=== PATIENT | female | born 1930 | race Caucasian/White ===

== ENCOUNTER 2019-03-16 18:48 | Observation (INO) | payer MEDICARE, BC ==
[2019-03-16] MEDS ORDERED: ACETAMINOPHEN TAB 500 MG TAB PO STA (19:14)
[2019-03-16] MEDS ORDERED: DIPH,PERTUS(ACELL)TETVAC-LF 0.5 ML VIAL IM ONE (19:16)
--- NOTE | 2019-03-16 20:48 | CT ---
EXAMINATION TYPE: CT brain deborahine wo con DATE OF EXAM: 03/16/2019 COMPARISON: 01/24/2016 HISTORY: fall. Pain/multiple facial lacerations. CT DLP: combined DLP 961.5 mGycm Automated exposure control for dose reduction was used. TECHNIQUE: CT scan of the head and cervical spine are performed without contrast. FINDINGS: There is no acute intracranial hemorrhage, mass effect, or midline shift identified. The ventricles and sulci are within normal limits in size. The globes are intact and the visualized sin uses are clear. Cervical spine is visualized in its entirety from C1 through upper thoracic levels and demonstrates s atisfactory alignment without evidence of acute fracture or dislocation. Prevertebral soft tissue ap pears within normal limits. Severe multilevel spondylosis changes are appreciated. The C1-C2 articula tion is unremarkable. IMPRESSION: 1. There is no acute fracture or dislocation evident in the cervical spine. 2. No acute intracranial hemorrhage, mass effect, or midline shift is seen.
--- NOTE | 2019-03-16 20:53 | CT ---
EXAMINATION TYPE: CT facial bones wo con DATE OF EXAM: 03/16/2019 COMPARISON: 01/24/2016 HISTORY: fall. Multiple facial lacerations. CT DLP: combined DLP 961.5 mGycm Automated exposure control for dose reduction was used. TECHNIQUE: CT scan of the sinuses is performed without contrast, axial images are obtained, coronal r eformatted images are also reviewed. FINDINGS: Comminuted and depressed right nasal bone fracture. Comminuted left nasal bone fracture. The anterior nasal septum shows apex-rightward fracture. The bilateral zygoma and orbits and maxillary, ethmoid, frontal, and sphenoid sinuses are intact. The remainder of the facial skeleton is intact, and the TMJs are congruent. There is no visualized skull fracture. Mastoid sinus air cells and middle ear cavities are clear. IMPRESSION: Bilateral nasal bone and nasal septum fractures
--- NOTE | 2019-03-16 21:07 | XR ---
PROCEDURE: XR knee complete RT - 3V DATE AND TIME: 03/16/2019 7:34 PM CLINICAL INDICATION: PHH; Pain TECHNIQUE: Department protocol COMPARISON: None FINDINGS: There is no fracture or malalignment. Advanced medial compartment osteoarthritis changes are appreciated. The soft tissues are negative for acute findings. Advanced atherosclerotic nonaneurysmal calcificatio ns are noted. IMPRESSION: NO ACUTE PROCESS.
[2019-03-16] MEDS ORDERED: LIDOCAINE 1% INJ 10MG/ML (20 ML MDV) SQ ONE (21:19)
[2019-03-16] MEDS ORDERED: TOPICAL SKIN ADHESIVE 1 EACH AMP TOPICAL ONE (21:53)
[2019-03-16] MEDS ORDERED: NALOXONE 0.4 MG/ML 1 ML VIAL IV PRN (23:26)
[2019-03-16] MEDS ORDERED: ONDANSETRON 4 MG/2 ML VIAL IVP PRN (23:26)
--- NOTE | 2019-03-16 23:26 | ED ---
Fall HPI - General Chief Complaint: Fall Stated Complaint: fall Time Seen by Provider: 03/16/19 18:49 Source: patient, EMS Mode of arrival: EMS - History of Present Illness Initial Comments: 88-year-old female patient presents to the emergency department by ambulance today for evaluation after experiencing a fall at home. Patient states that she was walking outside with her cane when she tripped and fell forward landing on her face. Patient denies any loss of consciousness with this injury. She did sustain several lacerations to the face and has an obviously deformed nose. C- collar is in place. Patient is currently reporting headache. She denies any blurred or double vision. Denies any nausea or vomiting. Patient is also reporting right knee pain. States that she was unable to ambulate after the fall. Patient denies any neck pain, back pain, chest pain, shortness of breath, dizziness, weakness, abdominal pain, or difficulties with bowel movements or urination. - Related Data Home Medications Medication Instructions Recorded Confirmed Latanoprost Ophth [Xalatan 0.005%] 1 drops BOTH EYES 08/24/14 03/16/19 Meclizine [Antivert] 12.5 mg PO DAILY@1700 08/24/14 03/16/19 Allopurinol [Zyloprim] 150 mg PO DAILY@1200 01/24/16 03/16/19 Methotrexate Sodium [Methotrexate] 17.5 mg PO WE 01/24/16 03/16/19 Acetaminophen [Tylenol Arthritis 650 mg PO HS 03/13/16 03/16/19 8-hr] Brimonidine Tartrate [Alphagan P 1 drops BOTH EYES HS 03/13/16 03/16/19 0.1% Ophth Soln] Folic Acid 1 mg PO DAILY@1200 03/13/16 03/16/19 Potassium Chloride ER [K-Dur 20] 20 meq PO DAILY 03/13/16 03/16/19 Donepezil [Aricept] 10 mg PO DAILY 03/16/19 03/16/19 Ferrex-28 0.5 tab PO DAILY@119903/16/19 03/16/19 Furosemide [Lasix] 20 mg PO DAILY@119903/16/19 03/16/19 Ipratropium [place] 0.06%Nasal 1 spray EA NOSTRIL 03/16/19 03/16/19 [Atrovent Nasal 0.06%] Levothyroxine Sodium [Synthroid] 88 mcg PO DAILY 03/16/19 03/16/19 Memantine [Namenda] 10 mg PO BID 03/16/19 03/16/19 Omeprazole [PriLOSEC] 20 mg PO DAILY 03/16/19 03/16/19 Propylene Glycol/Peg 400/Pf 1 dropper BOTH EYES DAILY@1400 03/16/19 03/16/19 [Systane 0.3-0.4% Eye Drops] Sertraline [Zoloft] 50 mg PO HS 03/16/19 03/16/19 Allergies Allergy/AdvReac Type Severity Reaction Status Date / Time ciprofloxacin HCl Allergy Intermediate Rash/Hives Verified 03/16/19 20:16 [From Cipro] Penicillins Allergy Rash/Hives Verified 03/16/19 20:16 Sulfa (Sulfonamide Allergy Rash/Hives Verified 03/16/19 20:16 Antibiotics) Review of Systems ROS Statement: Those systems with pertinent positive or pertinent negative responses have been documented in the HPI. ROS Other: All systems not noted in ROS Statement are negative. Past Medical History Past Medical History: Cancer, Hyperlipidemia, Hypertension, Memory Impairment, Osteoarthritis (OA), Pneumonia, Pulmonary Embolus (PE), Thyroid Disorder Additional Past Medical History / Comment(s): PAST GOUT, GLAUCOMA, BLOOD CLOTS 2011, UTI, LEAKAGE OF URINE WEARS A PAD, DIVERTICULAR DISEASE, SKIN CANER 1999 History of Any Multi-Drug Resistant Organisms: None Reported Past Surgical History: Appendectomy, Bladder Surgery, Hysterectomy, Joint Replacement Additional Past Surgical History / Comment(s): colostomy for perforated bowel,MARILEE carpal tunnel surgery and 8 trigger finger surgerIES, CATARACT SURGERY BOTH EYES-LENS IMPLANTS, LT KNEE REPLACEMENT,HEMORRHOIDECTOMY Past Anesthesia/Blood Transfusion Reactions: Postoperative Nausea & Vomiting (PONV) Past Psychological History: Anxiety, Depression Smoking Status: Never smoker Past Alcohol Use History: None Reported Past Drug Use History: None Reported - Past Family History Brother(s) Family Medical History: Cancer Additional Family Medical History / Comment(s): BRAIN CANCER Daughter(s) Family Medical History: Cancer Additional Family Medical History / Comment(s): SKIN CANCER Mother Family Medical History: Congestive Heart Failure (CHF) Father Family Medical History: Musculoskeletal Disorder General Exam Limitations: no limitations General appearance: alert, in no apparent distress, other (This is a well- developed, well-nourished elderly female patient in no acute distress. Vital signs upon presentation are temperature 97.7F, pulse 81, respirations 16, blood pressure 181/83, pulse ox 99% on room air.) Head exam: Present: atraumatic, normocephalic, normal inspection Eye exam: Present: PERRL, EOMI, other (Patient has right inner canthus laceration, 0.5 cm, does not appear to involve the tear duct.). Absent: normal appearance, scleral icterus, conjunctival injection, periorbital swelling ENT exam: Present: normal exam, normal oropharynx, mucous membranes moist, TM's normal bilaterally Neck exam: Present: normal inspection. Absent: tenderness, meningismus, full ROM (C-collar in place), lymphadenopathy Respiratory exam: Present: normal lung sounds bilaterally. Absent: respiratory distress, wheezes, rales, rhonchi, stridor Cardiovascular Exam: Present: regular rate, normal rhythm, normal heart sounds. Absent: systolic murmur, diastolic murmur, rubs, gallop, clicks GI/Abdominal exam: Present: soft, normal bowel sounds. Absent: distended, tenderness, guarding, rebound, rigid Extremities exam: Present: full ROM, normal capillary refill, other (There is small skin tear noted to the right elbow. There is no bony tenderness. Patient has full range of motion. There is small abrasion noted to the left thumb. No bony tenderness. Full range of motion to the hand. Patient has ecchymosis to the right anterior knee. Small abrasion noted. Patient does have some mild [place] tenderness. Does exhibit full range of motion. Skin to the extremities are pink, warm, and dry. Cap refills less than 3 seconds. Radial pulses 2+ and equal bilaterally. Pedal pulses 2+ and equal bilaterally.). Absent: normal inspection, tenderness, pedal edema, joint swelling, calf tenderness Back exam: Present: normal inspection, other (Nontender, no step-off, no deformity to firm midline palpation of the thoracic and lumbar vertebrae. Full range of motion without pain or limitation.). Absent: vertebral tenderness Neurological exam: Present: alert, CN II-XII intact. Absent: oriented X3 (Oriented 2) Psychiatric exam: Present: normal affect, normal mood Skin exam: Present: warm, dry, intact, normal color. Absent: rash Expanded 1 - 3 cm laceration noted to the right eyebrow 2 - 1 cm laceration noted to the nasal bridge. 1 cm stellate laceration noted to the right nasal surface Course Vital Signs 03/16/19 03/16/19 18:49 19:00 Temperature 97.7 F Pulse Rate 81 80 Respiratory 16 Rate Blood Pressure 181/83 174/85 O2 Sat by Pulse 99 97 Oximetry Procedures - Laceration Laceration #1 Consent Obtained: verbal consent Indication: laceration Site: face (Right eyebrow) Size (cm): 3 Description: linear Depth: simple, single layer Anesthetic Used: lidocaine 1% Anesthesia Technique: local infiltration Amount (mls): 4 Pre-repair: irrigated extensively Type of Sutures: nylon Size of Sutures: 6-0 Number of Sutures: 6 Technique: simple, interrupted Patient Tolerated Procedure: well, no complications Laceration #2 Consent Obtained: verbal consent Indication: laceration Site: face (Nasal bridge) Size (cm): 1 Description: linear Depth: simple, single layer Anesthetic Used: lidocaine 1% Anesthesia Technique: local infiltration Amount (mls): 1 Pre-repair: irrigated extensively Type of Sutures: vicryl Size of Sutures: 6-0 Number of Sutures: 1 Technique: simple, interrupted Patient Tolerated Procedure: well, no complications Laceration #3 Consent Obtained: verbal consent Indication: laceration Site: face (Right nasal surface) Size (cm): 1 Description: stellate Depth: simple, single layer Anesthetic Used: lidocaine 1% Anesthesia Technique: local infiltration Amount (mls): 1 Pre-repair: irrigated extensively Type of Sutures: other (Exofin skin adhesive) Patient Tolerated Procedure: well, no complications Medical Decision Making - Medical Decision Making 88-year-old female patient presents to the emergency department today for evaluation after expressing a fall. Physical examination did reveal deformity of the nasal bone and surrounding swelling. Patient also had laceration noted above the right eyebrow, over the nasal bridge and to the right nasal surface. She also exhibited skin tear to the right elbow, abrasion to the left hand, and ecchymosis to the right knee. Patient is neurologically intact with no focal deficits. She did undergo computed tomography scan of the head, neck, and facial bones, this showed evidence for a comminuted nasal bone fracture and nasal septal fracture. There is no evidence for any other intracranial or facial injuries. X-ray of the right knee was obtained and showed no acute fractures or dislocations. Lacerations were repaired as documented. I did discuss the case with . his agrees to admit patient for observation. We will consult ears, nose, throat specialty for further evaluation of the nasal bone fracture. - Radiology Data Radiology results: report reviewed, image reviewed CT of the facial bones without contrast was obtained. Report is reviewed in its entirety. Impression by Dr. Priyanka Walker shows bilateral nasal bone and nasal septum fractures. Computed tomography scan of the head and C-spine are performed without contrast. Report was reviewed in its entirety. Impression by Dr. Priyanka Walker shows no acute fracture dislocation evident in the cervical spine. No acute intracranial hemorrhage, mass effect, or midline shift is seen. \ X-ray of the right knee is obtained. Report was reviewed in its entirety. Impression by Dr. Priyanka Walker shows no acute process. Disposition Clinical Impression: Fall, Nasal bone fracture Disposition: ADMITTED IP TO THIS [facility] Condition: Serious Referrals: Josselyn Cheney MD [Primary Care Provider] - 1-2 days Decision to Admit Reason: Admit from EC Decision Date: 03/16/19 Decision Time: 23:26
[2019-03-17] MEDS: MORPHINE SULFATE 2 MG/ML SYRINGE IVP PRN ×4 (01:06→15:33)
--- NOTE | 2019-03-17 02:08 | CONS ---
CONSULTATION CHIEF COMPLAINT: This is an 88-year-old female who fell while walking on a cement curb. She injured her right side of her face. MEDICAL HISTORY: Reviewed. PAST SURGICAL HISTORY: Reviewed with the patient. MEDICATIONS: Medication reviewed with the patient. PHYSICAL EXAMINATION: Eye examination: Vision is 20/40, both eyes. Extraocular motility full. Cornea clear. Conjunctivae clear. There is a lid laceration measuring 0.5 mm in depth and 2- 1/2 inches above the right eyebrow. There is also a superficial laceration in above the medial canthus, not involving the lacrimal sac. The lenses are clear. In both eyes, intra-ocular pressure around 18 mmHg, both eyes. Retina deferred. ASSESSMENT: 1. Right eyebrow skin laceration. 2. Right medial canthus laceration does not look to involve the lacrimal sac. Possible bone fracture of the nose. PLAN: I spoke with the emergency room doctor who is going ahead to suture the skin lacerations. I will examine her, on Friday at 4:00 pm in the office. The number is [phone] to perform probing and irrigation of the right lacrimal duct to be sure no stenosis or injury. Thank you for this consultation. MMODL / IJN: [id number] /
[2019-03-17] MEDS: LEVOTHYROXINE 88 MCG TAB PO SCH (05:30)
[2019-03-17] MEDS ORDERED: METHOTREXATE SODIUM 2.5 MG TAB PO SCH (09:00)
[2019-03-17] MEDS: PANTOPRAZOLE 40 MG TABLET PO SCH (09:14)
[2019-03-17] MEDS: POTASSIUM CHLORIDE ER 20 MEQ TAB.ER PO SCH (09:14)
[2019-03-17] MEDS: ALLOPURINOL 300 MG TAB PO SCH (09:14)
[2019-03-17] MEDS: MEMANTINE 10 MG TAB PO SCH ×2 (09:14→20:34)
[2019-03-17] MEDS: FOLIC ACID 1 MG TAB PO SCH (09:15)
[2019-03-17] MEDS: FUROSEMIDE 20 MG TAB PO SCH (09:15)
[2019-03-17] MEDS ORDERED: FERREX PO SCH (12:00)
[2019-03-17 12:23] LABS: Basophils % (A) 1 %; Eosinophils # (A) 0.2 k/uL (0-0.7); Eosinophils % (A) 3 %; HCT 35.5 % (34.0-46.0); HGB 11.4 gm/dL (11.4-16.0); Lymphocytes % (A) 20 %; MCH 30.6 pg (25.0-35.0); MCHC 32.2 g/dL (31.0-37.0); MCV 95.1 fL (80.0-100.0); Mean Platelet Volume 8.2; Monocytes # (A) 0.4 k/uL (0-1.0); Monocytes % (A) 8 %; Neutrophils # (A) 3.3 k/uL (1.3-7.7); Neutrophils % (A) 66 %; Platelet Count 166 k/uL (150-450); RBC 3.74 m/uL (3.80-5.40); RDW 14.6 % (11.5-15.5); WBC 4.9 k/uL (3.8-10.6)
[2019-03-17 12:41] LABS: Albumin 3.3 g/dL (3.5-5.0); Calcium 8.9 mg/dL (8.4-10.2); Potassium 4.6 mmol/L (3.5-5.1); Total Bilirubin 0.3 mg/dL (0.2-1.3); Total Protein 5.8 g/dL (6.3-8.2)
--- NOTE | 2019-03-17 13:12 | P.HPIM ---
History of Present Illness H&P Date: 03/17/19 This is an 88-year-old female patient who presented after having a fall. Patient reports she was out walking with her friend at her assisted living facility when she fell directly onto the concrete. Patient reports that she does walk with a cane but commonly walks much faster than she probably should. Patient reports that she does not clearly remember the event. She does not believe she had any chest pain or shortness of breath prior to episode. Patient does not believe she lost consciousness. But is unsure of how she ended up falling. Patient denies tripping or losing balance. Patient did sustain several lacerations to her face and nose. Facial CT was completed showing bilateral nasal bone and nasal septum fractures. Head and cervical spine CT completed showing no acute fracture or dislocation evident cervical spine. No acute hemorrhage, mass effect or midline shift is seen. Patient also states that she fell on her knee. Knee x-ray completed showing no acute process. Dr. Alicea has been consulted for ENT due to nasal fractures. Due to the unclear event leading up to fall will order carotid Doppler and 2-D echo to rule out possible syncopal episode. Will also check urinary analysis to rule out infection. At this time patient is resting comfortably in bed. Patient's daughter is at bedside. Patient denies any chest pain or shortness of breath. Patient denies nausea vomiting or diarrhea. Patient denies any urinary burning or frequency. Review of Systems please refer to HPI otherwise unremarkable Past Medical History Past Medical History: Cancer, Hyperlipidemia, Hypertension, Memory Impairment, Osteoarthritis (OA), Pneumonia, Pulmonary Embolus (PE), Thyroid Disorder Additional Past Medical History / Comment(s): PAST GOUT, GLAUCOMA, BLOOD CLOTS 2011, UTI, LEAKAGE OF URINE WEARS A PAD, DIVERTICULAR DISEASE, SKIN CANER 1999 History of Any Multi-Drug Resistant Organisms: None Reported Past Surgical History: Appendectomy, Bladder Surgery, Hysterectomy, Joint Replacement Additional Past Surgical History / Comment(s): colostomy for perforated bowel,MARILEE carpal tunnel surgery and 8 trigger finger surgerIES, CATARACT SURGERY BOTH EYES-LENS IMPLANTS, LT KNEE REPLACEMENT,HEMORRHOIDECTOMY Past Anesthesia/Blood Transfusion Reactions: Postoperative Nausea & Vomiting (PONV) Past Psychological History: Anxiety, Depression Additional Psychological History / Comment(s): PT WAS FOR 64 YEARS- SPOUSE 3 YEARS AGO. PT ADMITS TO FEELING DEPRESSED SINCE HIS PASSING BUT DENIES ANY THOUGHTS OF HARMING SELF.HAS HOME CARE NURSE VISIT ONCE A WEEK AND HAS LIFE ALERT. Smoking Status: Never smoker Past Alcohol Use History: None Reported Past Drug Use History: None Reported - Past Family History Brother(s) Family Medical History: Cancer Additional Family Medical History / Comment(s): BRAIN CANCER Daughter(s) Family Medical History: Cancer Additional Family Medical History / Comment(s): SKIN CANCER Mother Family Medical History: Congestive Heart Failure (CHF) Father Family Medical History: Musculoskeletal Disorder Medications and Allergies Home Medications Medication Instructions Recorded Confirmed Type Latanoprost Ophth [Xalatan 0.005%] 1 drops BOTH EYES HS 08/24/14 03/16/19 History Meclizine [Antivert] 12.5 mg PO DAILY@1700 08/24/14 03/16/19 History Allopurinol [Zyloprim] 150 mg PO DAILY@1200 01/24/16 03/16/19 History Methotrexate Sodium [Methotrexate] 17.5 mg PO WE 01/24/16 03/16/19 History Acetaminophen [Tylenol Arthritis 650 mg PO HS 03/13/16 03/16/19 History 8-hr] Brimonidine Tartrate [Alphagan P 1 drops BOTH EYES HS 03/13/16 03/16/19 History 0.1% Ophth Soln] Folic Acid 1 mg PO DAILY@1200 03/13/16 03/16/19 History Potassium Chloride ER [K-Dur 20] 20 meq PO DAILY 03/13/16 03/16/19 History Donepezil [Aricept] 10 mg PO DAILY 03/16/19 03/16/19 History Ferrex-28 0.5 tab PO DAILY@1200 03/16/19 03/16/19 History Furosemide [Lasix] 20 mg PO DAILY@1200 03/16/19 03/16/19 History Ipratropium [place] 0.06%Nasal 1 spray EA NOSTRIL HS 03/16/19 03/16/19 History [Atrovent Nasal 0.06%] Levothyroxine Sodium [Synthroid] 88 mcg PO DAILY 03/16/19 03/16/19 History Memantine [Namenda] 10 mg PO BID 03/16/19 03/16/19 History Omeprazole [PriLOSEC] 20 mg PO DAILY 03/16/19 03/16/19 History Propylene Glycol/Peg 400/Pf 1 dropper BOTH EYES DAILY@1400 03/16/19 03/16/19 History [Systane 0.3-0.4% Eye Drops] Sertraline [Zoloft] 50 mg PO HS 03/16/19 03/16/19 History Allergies Allergy/AdvReac Type Severity Reaction Status Date / Time ciprofloxacin HCl Allergy Intermediate Rash/Hives Verified 03/16/19 20:16 [From Cipro] Penicillins Allergy Rash/Hives Verified 03/16/19 20:16 Sulfa (Sulfonamide Allergy Rash/Hives Verified 03/16/19 20:16 Antibiotics) Physical Exam Vitals: Vital Signs Temp Pulse Pulse Resp BP BP Pulse Ox 03/17/19 11:10 97.8 F 72 16 122/67 95 03/17/19 04:46 97.6 F 70 16 150/64 96 03/16/19 23:35 97.8 F 72 18 142/72 97 03/16/19 19:00 80 174/85 97 03/16/19 18:49 97.7 F 81 16 181/83 99 Intake and Output 03/16/19 03/17/19 03/17/19 22:59 06:59 14:59 Intake Total 120 Balance 120 Intake: Oral 120 Other: # Voids 1 Weight 83.915 kg Head normocephalic. Bilateral lacerations and bruising around the eyes and nose Neck supple Lungs clear to auscultation bilaterally no wheezing or crackles Heart regular rate and rhythm S1-S2, no rub or gallop Abdomen is soft nontender nondistended positive bowel sounds no hepatosplenomegaly Extremities no edema. Swelling to right knee Neuro alert and orientated to 3. Poor historian Results CBC & Chem 7: 03/17/19 11:39 03/17/19 11:39 Labs: Abnormal Lab Results - Last 24 Hours (Table) 03/17/19 03/17/19 Range/Units 11:39 11:39 RBC 3.74 L (3.80-5.40) m/uL Creatinine 1.09 H (0.52-1.04) mg/dL Total Protein 5.8 L (6.3-8.2) g/dL Albumin 3.3 L (3.5-5.0) g/dL Thrombosis Risk Factor Assmnt - Choose All That Apply Any of the Below Risk Factors Present?: No Other Risk Factors: Yes Each Risk Factor Represents 3 Points: Age 75 years or older Thrombosis Risk Factor Assessment Total Risk Factor Score: 3 Thrombosis Risk Factor Assessment Level: Moderate Risk Assessment and Plan Assessment: 1. Nasal bone fracture status post fall. Head and cervical spine CT completed showing no acute fracture or dislocation evident in the cervical spine. No acute intracranial hemorrhage, mass effect or midline shift is seen. CT completed showing bilateral nasal bone and nasal septum fractures. ENT services have been consulted 2. Possible syncopal episode. 2-D echo and carotid Doppler has been ordered. 3. Right knee pain from fall. Knee x-ray completed showing no acute process. 4. History of hyperlipidemia 5. History of essential hypertension 6. Memory impairment 7. Osteoarthritis 8. History of pulmonary embolism receive treatment in 2012 9. History of hypothyroidism. TSH level has been ordered 10. History of anxiety and depression 11. Chronic kidney disease stage III. Patient's creatinine 1.09 this does maninder ear baseline for patient DVT prophylaxis SCDs due to multiple lacerations and bruising to face. GI prophylaxis Protonix Physical therapy consulted. Urinary analysis has been ordered to rule out infection Carotid Doppler and 2-D echo ordered due to possible syncopal episode ENT consulted for nasal bone fracture Time with Patient: Greater than 30 (Greater than 60% of the total time spent in counseling and coordination of care. I performed an examination of the patient and discussed their management with the Nurse Practitioner. I have reviewed the Nurse Practitioner's notes and agree with the documented findings and plan of care)
--- NOTE | 2019-03-17 13:55 | US ---
EXAMINATION TYPE: US carotid duplex BILAT DATE OF EXAM: 03/17/2019 COMPARISON: NONE CLINICAL HISTORY: possible syncopal episode. Passed out and fell. No hx of TIA. EXAM MEASUREMENTS: RIGHT: Peak Systolic Velocity (PSV) cm/sec ----- Right CCA: 91.6 ----- Right ICA: 94.1 ----- Right ECA: 149.0 ICA/CCA ratio: 1.0 RIGHT: End Diastole cm/sec ----- Right CCA: 16.0 ----- Right ICA: 19.3 ----- Right ECA: 15.0 LEFT: Peak Systolic Velocity (PSV) cm/sec ----- Left CCA: 115.8 ----- Left ICA: 101.6 ----- Left ECA: 146.3 ICA/CCA ratio: 0.9 LEFT: End Diastole cm/sec ----- Left CCA: 18.0 ----- Left ICA: 14.4 ----- Left ECA: 0.0 VERTEBRALS (direction of flow): Right Vertebral: Antegrade Left Vertebral: Antegrade Rhythm: Normal Plaque seen in right bulb. No significant stenosis. Bilateral wall thickening. IMPRESSION: Mild degree of grayscale atheromatous plaquing with no sonographically evident hemodynam ically significant stenosis within either visualized internal carotid artery, common carotid artery n or carotid bulb. Mild stenosis of the bilateral external carotid arteries are incidentally seen. Criteria for Assigning % of Stenosis / Diameter reduction (Estimation based on the indirect measurements of the internal carotid artery velocities (ICA PSV). 1. Normal (no stenosis)=ICA PSV < 125 cm/s: ratio < 2.0: ICA EDV<40 cm/s. 2. Less than 50% stenosis=ICA PSV < 125 cm/s: ratio < 2.0: ICA EDV<40 cm/s. 3. 50 to 69% stenosis=ICA PSV of 125 to 230 cm/s: ration 2.0 ? 4.0: ICA EDV 40-100 cm/s. 4. Greater than 70% stenosis to near occlusion= ICA PSV > 230 cm/s: ratio > 4.0: ICA EDV > 100 cm/s. 5. Near occlusion= ICA PSV velocities may be low or undetectable: variable ratio and ICA EDV. 6. Total occlusion=unable to detect flow.
[2019-03-17] MEDS: REFRESH TEARS BOTH EYES SCH (14:27)
[2019-03-17] MEDS ORDERED: MECLIZINE 12.5 MG TAB PO SCH (17:00)
--- NOTE | 2019-03-17 18:36 | P.GSCN ---
History of Present Illness Consult date: 03/17/19 Reason for Consult: Facial trauma Requesting physician: Josselyn Cheney History of present illness: This is an 88-year-old female who fell onto her face and sustained significant facial injuries. She developed a laceration to the right supra-brow region and CAT scan evaluation shows a multiply comminuted nasal bone and septal fracture. She has no other facial fractures noted on computed tomography scan. She denies any facial numbness. She has diminished memory of the events of the fall. She is currently being held for observation. I understand that she may have some memory issues preexistent late. Currently she has some facial pain to the nose and has nasal obstruction and anosmia. Review of Systems - Constitutional Denies chronic headaches - EENT Ears, nose, mouth and throat: Reports as per HPI - Cardiovascular Denies claudication - Respiratory Denies cough - Gastrointestinal Denies belching - Genitourinary Genitourinary: Reports as per HPI - Musculoskeletal Reports as per HPI - Integumentary Reports as per HPI, Denies acne - Neurological Reports memory loss, Denies burning pain - Psychiatric Denies anxiety - Endocrine Denies excessive sweating - Hematologic/Lymphatic Denies easy bleeding - Allergic/Immunologic Denies allergic rhinitis Past Medical History Past Medical History: Cancer, Hyperlipidemia, Hypertension, Memory Impairment, Osteoarthritis (OA), Pneumonia, Pulmonary Embolus (PE), Thyroid Disorder Additional Past Medical History / Comment(s): PAST GOUT, GLAUCOMA, BLOOD CLOTS 2011, UTI, LEAKAGE OF URINE WEARS A PAD, DIVERTICULAR DISEASE, SKIN CANER 1999 History of Any Multi-Drug Resistant Organisms: None Reported Past Surgical History: Appendectomy, Bladder Surgery, Hysterectomy, Joint Replacement Additional Past Surgical History / Comment(s): colostomy for perforated bowel,MARILEE carpal tunnel surgery and 8 trigger finger surgerIES, CATARACT SURGERY BOTH EYES-LENS IMPLANTS, LT KNEE REPLACEMENT,HEMORRHOIDECTOMY Past Anesthesia/Blood Transfusion Reactions: Postoperative Nausea & Vomiting (PONV) Past Psychological History: Anxiety, Depression Additional Psychological History / Comment(s): PT WAS FOR 64 YEARS- SPOUSE 3 YEARS AGO. PT ADMITS TO FEELING DEPRESSED SINCE HIS PASSING BUT DENIES ANY THOUGHTS OF HARMING SELF.HAS HOME CARE NURSE VISIT ONCE A WEEK AND HAS LIFE ALERT. Smoking Status: Never smoker Past Alcohol Use History: None Reported Past Drug Use History: None Reported - Past Family History Brother(s) Family Medical History: Cancer Additional Family Medical History / Comment(s): BRAIN CANCER Daughter(s) Family Medical History: Cancer Additional Family Medical History / Comment(s): SKIN CANCER Mother Family Medical History: Congestive Heart Failure (CHF) Father Family Medical History: Musculoskeletal Disorder Medications and Allergies Home Medications Medication Instructions Recorded Confirmed Type Latanoprost Ophth [Xalatan 0.005%] 1 drops BOTH EYES HS 08/24/14 03/16/19 History Meclizine [Antivert] 12.5 mg PO DAILY@1700 08/24/14 03/16/19 History Allopurinol [Zyloprim] 150 mg PO DAILY@1200 01/24/16 03/16/19 History Methotrexate Sodium [Methotrexate] 17.5 mg PO WE 01/24/16 03/16/19 History Acetaminophen [Tylenol Arthritis 650 mg PO HS 03/13/16 03/16/19 History 8-hr] Brimonidine Tartrate [Alphagan P 1 drops BOTH EYES HS 03/13/16 03/16/19 History 0.1% Ophth Soln] Folic Acid 1 mg PO DAILY@1200 03/13/16 03/16/19 History Potassium Chloride ER [K-Dur 20] 20 meq PO DAILY 03/13/16 03/16/19 History Donepezil [Aricept] 10 mg PO DAILY 03/16/19 03/16/19 History Ferrex-28 0.5 tab PO DAILY@1200 03/16/19 03/16/19 History Furosemide [Lasix] 20 mg PO DAILY@1200 03/16/19 03/16/19 History Ipratropium [place] 0.06%Nasal 1 spray EA NOSTRIL 03/16/19 03/16/19 History [Atrovent Nasal 0.06%] Levothyroxine Sodium [Synthroid] 88 mcg PO DAILY 03/16/19 03/16/19 History Memantine [Namenda] 10 mg PO BID 03/16/19 03/16/19 History Omeprazole [PriLOSEC] 20 mg PO DAILY 03/16/19 03/16/19 History Propylene Glycol/Peg 400/Pf 1 dropper BOTH EYES DAILY@1400 03/16/19 03/16/19 History [Systane 0.3-0.4% Eye Drops] Sertraline [Zoloft] 50 mg PO HS 03/16/19 03/16/19 History Allergies Allergy/AdvReac Type Severity Reaction Status Date / Time ciprofloxacin HCl Allergy Intermediate Rash/Hives Verified 03/16/19 20:16 [From Cipro] Penicillins Allergy Rash/Hives Verified 03/16/19 20:16 Sulfa (Sulfonamide Allergy Rash/Hives Verified 03/16/19 20:16 Antibiotics) Surgical - Exam Osteopathic Statement: *. No significant issues noted on an osteopathic structural exam other than those noted in the History and Physical/Consult. Vital Signs Temp Pulse Resp BP Pulse Ox 97.7 F 81 16 181/83 99 03/16/19 18:49 03/16/19 18:49 03/16/19 18:49 03/16/19 18:49 03/16/19 18:49 - General well developed, well nourished, no distress, other (Myofascial discomfort) - Eyes PERRL, normal ocular movement - ENT Head is normocephalic the face demonstrates bilateral raccoon signs with an obvious external nasal deformity of the nose to the left and obvious columellar deformity from a septal fracture. The right nasal bone is depressed the left nasal bone is fractured laterally to the left. No facial numbness is noted. No other deformities palpated. No oral lesions are noted neck is unremarkable - Neck no masses, no lymphadectomy - Respiratory normal expansion - Integumentary no rash, no growths, no abnormal pigmentation - Neurologic normal coordination, normal sensation, memory loss - Musculoskeletal normal gait - Psychiatric oriented to time, oriented to person, oriented to place Results - Labs 03/17/19 11:39 03/17/19 11:39 Abnormal Lab Results - Last 24 Hours (Table) 03/17/19 03/17/19 Range/Units 11:39 11:39 RBC 3.74 L (3.80-5.40) m/uL Creatinine 1.09 H (0.52-1.04) mg/dL Total Protein 5.8 L (6.3-8.2) g/dL Albumin 3.3 L (3.5-5.0) g/dL Diabetes panel 03/17/19 Range/Units 11:39 Sodium 140 (137-145) mmol/L Potassium 4.6 (3.5-5.1) mmol/L Chloride 107 (98-107) mmol/L Carbon Dioxide 29 (22-30) mmol/L BUN 16 (7-17) mg/dL Creatinine 1.09 H (0.52-1.04) mg/dL Glucose 84 (74-99) mg/dL Calcium 8.9 (8.4-10.2) mg/dL AST 34 (14-36) U/L ALT 19 (9-52) U/L Alkaline Phosphatase 104 (38-126) U/L Total Protein 5.8 L (6.3-8.2) g/dL Albumin 3.3 L (3.5-5.0) g/dL Thyroid panel 03/17/19 Range/Units 11:39 TSH 2.590 (0.465-4.680) mIU/L Calcium panel 03/17/19 Range/Units 11:39 Calcium 8.9 (8.4-10.2) mg/dL Albumin 3.3 L (3.5-5.0) g/dL Pituitary panel 03/17/19 Range/Units 11:39 Sodium 140 (137-145) mmol/L Potassium 4.6 (3.5-5.1) mmol/L Chloride 107 (98-107) mmol/L Carbon Dioxide 29 (22-30) mmol/L BUN 16 (7-17) mg/dL Creatinine 1.09 H (0.52-1.04) mg/dL Glucose 84 (74-99) mg/dL Calcium 8.9 (8.4-10.2) mg/dL TSH 2.590 (0.465-4.680) mIU/L Adrenal panel 03/17/19 Range/Units 11:39 Sodium 140 (137-145) mmol/L Potassium 4.6 (3.5-5.1) mmol/L Chloride 107 (98-107) mmol/L Carbon Dioxide 29 (22-30) mmol/L BUN 16 (7-17) mg/dL Creatinine 1.09 H (0.52-1.04) mg/dL Glucose 84 (74-99) mg/dL Calcium 8.9 (8.4-10.2) mg/dL Total Bilirubin 0.3 (0.2-1.3) mg/dL AST 34 (14-36) U/L ALT 19 (9-52) U/L Alkaline Phosphatase 104 (38-126) U/L Total Protein 5.8 L (6.3-8.2) g/dL Albumin 3.3 L (3.5-5.0) g/dL Assessment and Plan (1) Deviated nasal septum Current Visit: Yes Status: Acute Code(s): J34.2 - DEVIATED NASAL SEPTUM SNOMED Code(s): 393867907 (2) External nose deformity Current Visit: Yes Status: Acute Code(s): M95.0 - ACQUIRED DEFORMITY OF NOSE SNOMED Code(s): 092221297 (3) Acquired deformity of external nose Current Visit: Yes Status: Acute Code(s): M95.0 - ACQUIRED DEFORMITY OF NOSE SNOMED Code(s): 25328163 (4) Facial laceration Current Visit: Yes Status: Acute Code(s): S01.81XA - LACERATION W/O FOREIGN BODY OF OTH PART OF HEAD, INIT ENCNTR SNOMED Code(s): 824436893 Plan: This patient has a very significant nasal bone and septal fracture. The patient's septum is severely deformed causing total nasal obstruction bilaterally. In addition her external nasal deformities quite apparent with a right nasal bone depressed and the left nasal bone deviated to the left. The patient is requesting a closed reduction of her nasal bone and septal fracture. We would like to wait a few days for observation and for the swelling to be reduced. She has an appointment on Friday for me to see her in the office and we will schedule her an appointment for surgery later that week. All risks, benefits, and alternative therapies regarding surgery were discussed. I understand that she is dealing with some mild dementia and the nurse was in the room and she will relate this information to the daughter. Again, I will see her in the office on Friday and we will over these issues once again. I did review the results of the patient's CAT scan and CAT scan films in great detail. Time with Patient: Greater than 30
[2019-03-17] MEDS: ACETAMINOPHEN TAB 325 MG TAB PO PRN (20:34)
[2019-03-17] MEDS ORDERED: BRIMONIDINE TARTRATE 0.2% DROPS 5 ML BTL BOTH EYES SCH (21:00)
[2019-03-17] MEDS ORDERED: LATANOPROST 0.005% OPHTH DROPS 2.5 ML BTL BOTH EYES SCH (21:00)
[2019-03-17] MEDS ORDERED: SERTRALINE 50 MG TAB PO SCH (21:00)
[2019-03-17 22:34] LABS: Appearance,Urine Cloudy (Clear); Bilirubin,Urine Negative (Negative); Blood,Urine Negative (Negative); Color,Urine Light Yellow; Glucose,Urine (UA) Negative (Negative); Hyaline Casts,Urine 1 /lpf (0-2); Ketones,Urine Negative (Negative); Leukocyte Esterase,Urine Large (Negative); Mucus,Urine Rare /hpf; Nitrite,Urine Negative (Negative); PH, Urine 5.5 (5.0-8.0); Protein,Urine Negative (Negative); RBC,Urine 4 /hpf (0-5); Specific Gravity,Urine 1.011 (1.001-1.035); Squamous Epithelial Cell,Urine 3 /hpf (0-4); Urobilinogen,Urine <2.0 mg/dL (<2.0); WBC,Urine 162 /hpf (0-5)
[2019-03-18] MEDS: LEVOTHYROXINE 88 MCG TAB PO SCH (06:09)
[2019-03-18 07:48] LABS: Basophils % (A) 1 %; Eosinophils # (A) 0.2 k/uL (0-0.7); Eosinophils % (A) 4 %; HCT 37.3 % (34.0-46.0); HGB 12.1 gm/dL (11.4-16.0); Lymphocytes % (A) 18 %; MCH 30.6 pg (25.0-35.0); MCHC 32.3 g/dL (31.0-37.0); MCV 94.6 fL (80.0-100.0); Mean Platelet Volume 8.2; Monocytes # (A) 0.4 k/uL (0-1.0); Monocytes % (A) 7 %; Neutrophils # (A) 3.7 k/uL (1.3-7.7); Neutrophils % (A) 68 %; Platelet Count 153 k/uL (150-450); RBC 3.94 m/uL (3.80-5.40); RDW 15.9 % (11.5-15.5); WBC 5.4 k/uL (3.8-10.6)
[2019-03-18 08:06] LABS: Albumin 3.4 g/dL (3.5-5.0); Potassium 4.1 mmol/L (3.5-5.1); Total Bilirubin 0.5 mg/dL (0.2-1.3); Total Protein 5.9 g/dL (6.3-8.2)
[2019-03-18] MEDS: MEMANTINE 10 MG TAB PO SCH (09:24)
[2019-03-18] MEDS: POTASSIUM CHLORIDE ER 20 MEQ TAB.ER PO SCH (09:26)
[2019-03-18] MEDS: ACETAMINOPHEN TAB 325 MG TAB PO PRN ×2 (09:26→15:27)
[2019-03-18] MEDS: PANTOPRAZOLE 40 MG TABLET PO SCH (09:27)
[2019-03-18 12:45] VITALS: BP 114/66; PULSE 67; RESP 16; TEMP 98
[2019-03-18] MEDS: ALLOPURINOL 300 MG TAB PO SCH (12:53)
[2019-03-18] MEDS: FUROSEMIDE 20 MG TAB PO SCH (12:53)
[2019-03-18] MEDS: REFRESH TEARS BOTH EYES SCH (12:54)
[2019-03-18] MEDS: FOLIC ACID 1 MG TAB PO SCH (12:54)
--- NOTE | 2019-03-18 14:14 | P.DS ---
Providers Date of admission: 03/17/19 00:02 Expected date of discharge: 03/18/19 Attending physician: Josselyn Cheney Consults: 03/16/19 23:27 Consult Physician Routine Consulting Provider: Lawrence Gavin Consult Reason/Comments: Nasal bone fracture Do you want consulting provider notified?: Yes Primary care physician: Josselyn Cheney [facility] Course: Discharge diagnosis 1. Nasal bone fracture with deviated nasal septum status post fall. Head and cervical spine CT completed showing no acute fracture or dislocation evident in the cervical spine. No acute intracranial hemorrhage, mass effect or midline shift is seen. CT completed showing bilateral nasal bone and nasal septum fractures. Per Dr. Alicea patient requesting closed reduction of her nasal bone and septal fracture. At this time would like to wait for swelling to decrease. Patient has appointment on Friday for follow-up and will likely schedule for surgery later that week. 2. Possible syncopal episode. 2-D echo pending. Carotid Doppler showing mild stenosis of bilateral external carotid arteries and mild degree of grayscale Dr. Go alexandra with no evident hemodynamically significant stenosis 3. Right knee pain from fall. Knee x-ray completed showing no acute process. 4. History of hyperlipidemia 5. History of essential hypertension 6. Memory impairment 7. Osteoarthritis 8. History of pulmonary embolism receive treatment in 2011 9. History of hypothyroidism. TSH level 2.590 10. History of anxiety and depression 11. Chronic kidney disease stage III. Patient's creatinine 1.09 this does appear baseline for patient 12. Urinary tract infection. DC'd on doxycycline for 5 days. Urine culture to be corrected prior to discharge Hospital course This is an 88-year-old female patient who presented after having a fall. Patient reports she was out walking with her friend at her assisted living facility when she fell directly onto the concrete. Patient reports that she does walk with a cane but commonly walks much faster than she probably should. Patient reports that she does not clearly remember the event. She does not believe she had any chest pain or shortness of breath prior to episode. Patient does not believe she lost consciousness. But is unsure of how she ended up falling. Patient denies tripping or losing balance. Patient did sustain several lacerations to her face and nose. Facial CT was completed showing bilateral nasal bone and nasal septum fractures. Head and cervical spine CT completed showing no acute fracture or dislocation evident cervical spine. No acute hemorrhage, mass effect or midline shift is seen. Patient also states that she fell on her knee. Knee x-ray completed showing no acute process. Dr. Alicea has been consulted for ENT due to nasal fractures. Due to the unclear event leading up to fall will order carotid Doppler and 2-D echo to rule out possible syncopal episode. Will also check urinary analysis to rule out infection. At this time patient is resting comfortably in bed. Patient's daughter is at bedside. Patient denies any chest pain or shortness of breath. Patient denies nausea vomiting or diarrhea. Patient denies any urinary burning or frequency. On 03/18/2019 patient's alert and oriented 3. Patient was evaluated by ENT planning follow-up appointment on Friday. Patient also positive for urinary tract infection. Patient will be DC'd on doxycycline due to multiple drug ALLERGIES. Urine culture to be collected prior to discharge this was verbalized to nurse. Patient was evaluated by physical therapy recommended home with rolling walker. At this time patient denies chest pain or shortness breath. Patient denies nausea vomiting or diarrhea. Patient denies any urinary burning or frequency. 2-D echo has been completed but has not been read. Patient to follow-up with PCP for follow-up further follow-up I performed an examination of the patient and discussed their management with the Nurse Practitioner. I have reviewed the Nurse Practitioner's notes and agree with the documented findings and plan of care Patient Condition at Discharge: Stable Plan - Discharge Summary Discharge Rx Participant: Yes New Discharge Prescriptions: New Doxycycline [Vibramycin] 100 mg PO BID 5 Days #10 capsule Continue Latanoprost Ophth [Xalatan 0.005%] 1 drops BOTH EYES HS Meclizine [Antivert] 12.5 mg PO DAILY@1700 Methotrexate Sodium [Methotrexate] 17.5 mg PO WE Allopurinol [Zyloprim] 150 mg PO DAILY@1200 Folic Acid 1 mg PO DAILY@1200 Acetaminophen [Tylenol Arthritis 8-hr] 650 mg PO HS Potassium Chloride ER [K-Dur 20] 20 meq PO DAILY Brimonidine Tartrate [Alphagan P 0.1% Ophth Soln] 1 drops BOTH EYES HS Sertraline [Zoloft] 50 mg PO HS Ferrex-28 0.5 tab PO DAILY@1200 Propylene Glycol/Peg 400/Pf [Systane 0.3-0.4% Eye Drop] 1 dropper BOTH EYES DAILY@1400 Memantine [Namenda] 10 mg PO BID Omeprazole [PriLOSEC] 20 mg PO DAILY Donepezil [Aricept] 10 mg PO DAILY Levothyroxine Sodium [Synthroid] 88 mcg PO DAILY Furosemide [Lasix] 20 mg PO DAILY@1200 Ipratropium [place] 0.06%Nasal [Atrovent Nasal 0.06%] 1 spray EA NOSTRIL HS Discharge Medication List Latanoprost Ophth [Xalatan 0.005%] 1 drops BOTH EYES HS 08/24/14 [History] Meclizine [Antivert] 12.5 mg PO DAILY@1700 08/24/14 [History] Allopurinol [Zyloprim] 150 mg PO DAILY@1200 01/24/16 [History] Methotrexate Sodium [Methotrexate] 17.5 mg PO WE 01/24/16 [History] Acetaminophen [Tylenol Arthritis 8-hr] 650 mg PO HS 03/13/16 [History] Brimonidine Tartrate [Alphagan P 0.1% Ophth Soln] 1 drops BOTH EYES HS 03/13/16 [History] Folic Acid 1 mg PO DAILY@1200 03/13/16 [History] Potassium Chloride ER [K-Dur 20] 20 meq PO DAILY 03/13/16 [History] Donepezil [Aricept] 10 mg PO DAILY 03/16/19 [History] Ferrex-28 0.5 tab PO DAILY@1200 03/16/19 [History] Furosemide [Lasix] 20 mg PO DAILY@1200 03/16/19 [History] Ipratropium [place] 0.06%Nasal [Atrovent Nasal 0.06%] 1 spray EA NOSTRIL 03/16/19 [History] Levothyroxine Sodium [Synthroid] 88 mcg PO DAILY 03/16/19 [History] Memantine [Namenda] 10 mg PO BID 03/16/19 [History] Omeprazole [PriLOSEC] 20 mg PO DAILY 03/16/19 [History] Propylene Glycol/Peg 400/Pf [Systane 0.3-0.4% Eye Drop] 1 dropper BOTH EYES DAILY@1400 03/16/19 [History] Sertraline [Zoloft] 50 mg PO HS 03/16/19 [History] Doxycycline [Vibramycin] 100 mg PO BID 5 Days #10 capsule 03/18/19 [Rx] Follow up Appointment(s)/Referral(s): Lawrence Gavin DO [Doctor of Osteopathic Medicine] - 03/22/19 2:30 pm [facility] [NON-STAFF] - 1 Week Josselyn Cheney MD [Primary Care Provider] - 1-2 days [facility] Visiting Nurse, [NON-STAFF] - 1-2 Days Activity/Diet/Wound Care/Special Instructions: pt will be sent home with a rolling walker s/t gait disfunction and weakness. return back to assisted living. Discharge Disposition: HOME SELF-CARE
--- NOTE | 2019-03-18 19:02 | ECHOF ---
Referral Reason:possible syncopal episode MEASUREMENTS -------- HEIGHT: 162.6 cm WEIGHT: 83.9 kg BP: IVSd: 1.6 cm (0.6 - 1.1) LVIDd: 3.2 cm (3.9 - 5.3) LVPWd: 1.6 cm (0.6 - 1.1) IVSs: 1.6 cm LVIDs: 2.2 cm LVPWs: 1.9 cm LA Diam: 1.7 cm (2.7 - 3.8) Ao Diam: 2.8 cm (2.0 - 3.7) AV Cusp: 1.5 cm (1.5 - 2.6) LA Diam: 2.2 cm (2.7 - 3.8) MV EXCURSION: 14.317 mm (> 18.000) MV EF SLOPE: 71 mm/s (70 - 150) EPSS: 0.5 cm MV E Jorge Alberto: 0.81 m/s MV DecT: 382 ms MV A Jorge Alberto: 1.00 m/s MV E/A Ratio: 0.81 RAP: 5.00 mmHg RVSP: 29.16 mmHg FINDINGS -------- Sinus rhythm. This was a technically good study. The left ventricular size is normal. There is moderate concentric left ventricular hypertrophy. O verall left ventricular systolic function is normal with, an EF between 55 - 60 %. The right ventricle is normal in size. The left atrial size is normal. The right atrial size is normal. Interatrial and interventricular septum intact. The aortic valve is trileaflet and appears structurally normal. The mitral valve leaflets are mildly thickened. Mild mitral regurgitation is present. Mild tricuspid regurgitation present. The right ventricular systolic pressure, as measured by Doppl er, is 29.16mmHg. There is no pulmonic regurgitation present. The aortic root size is normal. Normal inferior vena cava with normal inspiratory collapse consistent with estimated right atrial pre ssure of 5 mmHg. There is a small, generalized pericardial effusion present. CONCLUSIONS -------- 1. Sinus rhythm. 2. This was a technically good study. 3. The left ventricular size is normal. 4. There is moderate concentric left ventricular hypertrophy. 5. Overall left ventricular systolic function is normal with, an EF between 55 - 60 %. 6. The right ventricle is normal in size. 7. The left atrial size is normal. 8. The right atrial size is normal. 9. Interatrial and interventricular septum intact. 10. The aortic valve is trileaflet and appears structurally normal. 11. The mitral valve leaflets are mildly thickened. 12. Mild mitral regurgitation is present. 13. Mild tricuspid regurgitation present. 14. The right ventricular systolic pressure, as measured by Doppler, is 29.16mmHg. 15. There is no pulmonic regurgitation present. 16. The aortic root size is normal. 17. Normal inferior vena cava with normal inspiratory collapse consistent with estimated right atrial pressure of 5 mmHg. 18. There is a small, generalized pericardial effusion present. CREDIT REPORT CHECKER: Carmen Olvera RDCS
== END 2019-03-18 15:43 | disposition home or self-care (01) ==
LOC: EC 18:48 → 3NMEDONC 03-17 00:02
PROVIDERS: ADMIT Internal Medicine; ATTEND Internal Medicine
DX: S02.2XXA Fracture of nasal bones, initial encounter for closed fracture (principal); W01.0XXA Fall on same level from slipping, tripping and stumbling without subsequent striking against object, initial encounter; Y92.099 Unspecified place in other non-institutional residence as the place of occurrence of the external cause; M25.561 Pain in right knee; E78.5 Hyperlipidemia, unspecified; I10 Essential (primary) hypertension; M19.90 Unspecified osteoarthritis, unspecified site; N39.0 Urinary tract infection, site not specified; S01.111A Laceration without foreign body of right eyelid and periocular area, initial encounter; S01.81XA Laceration without foreign body of other part of head, initial encounter; S51.011A Laceration without foreign body of right elbow, initial encounter; S60.512A Abrasion of left hand, initial encounter; M10.9 Gout, unspecified; Z96.652 Presence of left artificial knee joint; Z98.42 Cataract extraction status, left eye; Z98.41 Cataract extraction status, right eye; Z96.1 Presence of intraocular lens; F41.9 Anxiety disorder, unspecified; F32.9 Major depressive disorder, single episode, unspecified; E03.9 Hypothyroidism, unspecified; H40.9 Unspecified glaucoma; I12.9 Hypertensive chronic kidney disease with stage 1 through stage 4 chronic kidney disease, or unspecified chronic kidney disease; N18.3 Chronic kidney disease, stage 3 (moderate); I65.23 Occlusion and stenosis of bilateral carotid arteries; J34.2 Deviated nasal septum; Z23 Encounter for immunization; Y92.009 Unspecified place in unspecified non-institutional (private) residence as the place of occurrence of the external cause; Y93.01 Activity, walking, marching and hiking; Z79.890 Hormone replacement therapy; Z79.899 Other long term (current) drug therapy; Z88.9 Allergy status to unspecified drugs, medicaments and biological substances; Z93.3 Colostomy status; Z86.711 Personal history of pulmonary embolism; Z90.710 Acquired absence of both cervix and uterus; Z80.8 Family history of malignant neoplasm of other organs or systems; Z82.49 Family history of ischemic heart disease and other diseases of the circulatory system
CPT/HCPCS: 90471; 12013; 96376; 96374; 99285; 93306; 97162; 80053 ×2; 84443; 83735; 85025 ×2; 81001; 87086; 87077; 87186; 73562; 93880; 72125; 70486; 70450; 90715; G0378 ×2; J2001; J8610; J2270

== ENCOUNTER 2019-03-25 07:45 | Day surgery (SDC) | payer MEDICARE, BC ==
[2019-03-24 10:05] VITALS: BMI 31.7
[~2019-03-25 07:45] MED LIST: CLINDAMYCIN IVPB ONE; DEXTROSE 5% IVPB ONE; FAMOTIDINE 20 MG/2 ML VIAL IV ONE; ONDANSETRON 4 MG/2 ML VIAL IVP ONE; OXYMETAZOLINE 0.05% NASL SPRAY 1 SPRAY BOTTLE NASAL ONE; WATER IVPB ONE
[2019-03-25] MEDS: OXYMETAZOLINE 0.05% NASL SPRAY 1 SPRAY BOTTLE NASAL ONE ×5 (08:20→08:40)
[2019-03-25] MEDS: ONDANSETRON 4 MG/2 ML VIAL IVP ONE ×2 (08:26→11:42)
[2019-03-25] MEDS: LACTATED RINGERS 1,000 ML IV SCH ×2 (08:26→10:21)
[2019-03-25] MEDS ORDERED: SUCCINYLCHOLINE CHLORIDE 100 MG/5 ML SYR IV ONE (10:19)
[2019-03-25] MEDS ORDERED: PROPOFOL 10 MG/ML 20 ML VIAL IV ONE (10:19)
[2019-03-25] MEDS ORDERED: LIDOCAINE 1% INJ 10MG/ML (20 ML MDV) ONE (10:19)
[2019-03-25] MEDS ORDERED: OXYMETAZOLINE 0.05% NASL SPRAY 1 SPRAY BOTTLE EA NOSTRIL ONE ×2 (10:31→10:50)
[2019-03-25] MEDS ORDERED: LIDOCAINE 1%-EPI 1:100,000 20 ML VIAL SUBMUCOSAL ONE ×3 (10:32→10:50)
[2019-03-25] MEDS ORDERED: BACITRACIN 500 UNIT/GM OINT 28.4 GM TUBE TOPICAL ONE ×2 (10:32→10:50)
[2019-03-25] MEDS ORDERED: BUPIVACAINE-EPI 0.5%-1:200,000 10 ML VIAL SQ ONE ×3 (10:33→10:50)
[2019-03-25 11:24] VITALS: RESP 16; TEMP 97.9
[2019-03-25] MEDS: HYDROmorphone 0.5 MG/0.5 ML SYRINGE IVP PRN ×4 (11:25→11:59)
--- NOTE | 2019-03-25 11:43 | P.OP ---
Date of Procedure: 03/25/19 Preoperative Diagnosis: Closed nasal bone fracture deviated nasal septum Postoperative Diagnosis: Same Procedure(s) Performed: Closed reduction of nasal bone fracture with fixation Septoplasty Anesthesia: ANGEL Surgeon: Lawrence Gavin Estimated Blood Loss (ml): 0 Pathology: none sent Condition: stable Disposition: PACU Indications for Procedure: This patient fell and fractured her nose and septum. Correction was recommended. All risks, benefits, and alternative therapies were discussed. Consent was obtained and all questions were answered. Operative Findings: Patient had arrangement of the nose and septum with severe deviation and crushed nose. The nasal bones were crushed and multiple pieces with total instability and the septum was also severely deviated mostly to the right with fracture line noted. Description of Procedure: This patient was taken to the operative room and placed in the supine position. A general inhalation anesthetic was administered to the patient and the patient was monitored throughout the entire case by the department of anesthesia. The nasal hair was trimmed and the septum was injected with lidocaine 1% with epinephrine 1 100,000. Approximately 10 minutes were allowed wait for full vasoconstrictive effects to take place. A caudal incision was made over the caudal portion of the left septum down to the mucoperichondrium. A mucoperichondrial flap was developed with towels to the extent of visualization. Septal deviation was visualized and with use of several crosshatching incisions and removal of redundant strips of septal cartilage the septum was mobilized and placed back in the midline. Septum was sutured fixated to the vomerian groove and a quilting stitch was used to reapproximate the septal flaps to maintain stability. Incision was closed with a 4.0 rapid Vicryl also. The septum was reinspected and found to be in the midline. Patient tolerated this well. Attention was then paid to the outer nose were with use of a Boyes nasal elevator and a Walsham forceps the nasal bones were placed back into position. We fixated the nasal bones and inserted nasal pore underneath the nasal bones to maintain stability and then the nose was taped and casted in usual fashion. Nasal bones were placed and a good position. The patient tolerated this well and cast will be removed in 10 days. Splints will be removed in 10 days. Patient was taken to postanesthesia recovery in excellent condition. A follow- up is scheduled.
[2019-03-25] MEDS ORDERED: ACETAMINOPHEN TAB 500 MG TAB PO ONE (12:43)
[2019-03-25 12:45] VITALS: BP 155/80; PULSE 65
== END 2019-03-25 13:25 | disposition home or self-care (01) ==
LOC: OR 07:45
PROVIDERS: ATTEND Otolaryngology
DX: S02.2XXA Fracture of nasal bones, initial encounter for closed fracture (principal); W18.30XA Fall on same level, unspecified, initial encounter; J34.2 Deviated nasal septum; E07.9 Disorder of thyroid, unspecified; M10.9 Gout, unspecified; R41.3 Other amnesia; H40.9 Unspecified glaucoma; Z90.710 Acquired absence of both cervix and uterus; Z96.60 Presence of unspecified orthopedic joint implant; Z79.890 Hormone replacement therapy; Z79.899 Other long term (current) drug therapy; Z88.0 Allergy status to penicillin; Z88.2 Allergy status to sulfonamides; Z91.048 Other nonmedicinal substance allergy status; Z88.1 Allergy status to other antibiotic agents
CPT/HCPCS: 30520; 21320; J2405; J2001; J0330; J2704; J1170

== ENCOUNTER 2020-08-08 10:42 | Emergency (ER) | payer MEDICARE, BC ==
[2020-08-08 10:50] VITALS: RESP 18
[2020-08-08] MEDS ORDERED: MECLIZINE 12.5 MG TAB PO STA (11:06)
[2020-08-08] MEDS ORDERED: SODIUM CHLORIDE 0.9% 500 ML 500 ML IV STA (11:06)
--- NOTE | 2020-08-08 11:06 | ED ---
Dizziness HPI - General Chief Complaint: Dizziness Stated Complaint: near syncope, dizzy, sweating Time Seen by Provider: 08/08/20 10:53 Source: patient, family, RN notes reviewed Mode of arrival: wheelchair Limitations: no limitations - History of Present Illness Initial Comments: This is a 88-year-old female with a prior history of vertigo who now is starting to develop dementia who was brought in today because of an episode of dizziness with diaphoresis lasting approximately 10-15 minutes. She was fine when she woke up this morning but that she had very dizzy no reports of nausea vomiting no fevers chills no loss of function to his upper or lower extremities no trauma reported. She has not had any dizzy episodes recently she has been on meclizine in the pastcurrently she is symptom free MD Complaint: dizziness, lightheadedness, other - Related Data Home Medications Medication Instructions Recorded Confirmed Latanoprost Ophth [Xalatan 0.005%] 1 drops BOTH EYES HS 08/24/14 03/24/19 Meclizine [Antivert] 12.5 mg PO DAILY@1700 08/24/14 03/24/19 allopurinoL [Zyloprim] 150 mg PO DAILY@1200 01/24/16 03/24/19 metHOTREXate sodium [Methotrexate] 17.5 mg PO WE 01/24/16 03/24/19 Acetaminophen [Tylenol Arthritis 650 mg PO HS 03/13/16 03/24/19 8-hr] Brimonidine Tartrate [Alphagan P 1 drops BOTH EYES HS 03/13/16 03/24/19 0.1% Ophth Soln] Folic Acid 1 mg PO DAILY@1200 03/13/16 03/24/19 Potassium Chloride ER [K-Dur 20] 20 meq PO DAILY 03/13/16 03/24/19 Donepezil [Aricept] 10 mg PO DAILY 03/16/19 03/24/19 Ferrex-28 0.5 tab PO DAILY@1200 03/16/19 03/24/19 Furosemide [Lasix] 20 mg PO DAILY@1200 03/16/19 03/24/19 Levothyroxine Sodium [Synthroid] 88 mcg PO DAILY 03/16/19 03/24/19 Memantine [Namenda] 10 mg PO BID 03/16/19 03/24/19 Omeprazole [PriLOSEC] 20 mg PO DAILY 03/16/19 03/24/19 Sertraline [Zoloft] 50 mg PO HS 03/16/19 03/24/19 Carboxymethylcellulos/Glycerin 1 drop BOTH EYES DAILY 03/24/19 03/24/19 [Refresh Repair 0.5-0.9% Drop] Previous Rx's Medication Instructions Recorded Doxycycline [Vibramycin] 100 mg PO BID 5 Days #10 capsule 03/18/19 Clindamycin HCl 150 mg PO Q12HR #20 cap 03/25/19 Allergies Allergy/AdvReac Type Severity Reaction Status Date / Time ciprofloxacin HCl Allergy Intermediate Rash/Hives Verified 08/08/20 10:50 [From Cipro] Penicillins Allergy Rash/Hives Verified 08/08/20 10:50 Sulfa (Sulfonamide Allergy Rash/Hives Verified 08/08/20 10:50 Antibiotics) Review of Systems ROS Statement: Those systems with pertinent positive or pertinent negative responses have been documented in the HPI. ROS Other: All systems not noted in ROS Statement are negative. Past Medical History Past Medical History: Cancer, Hyperlipidemia, Hypertension, Memory Impairment, Osteoarthritis (OA), Pneumonia, Pulmonary Embolus (PE), Thyroid Disorder Additional Past Medical History / Comment(s): PAST GOUT, GLAUCOMA, BLOOD CLOTS 2011, finishing antibiotics for UTI, LEAKAGE OF URINE WEARS A PAD, DIVERTICULAR DISEASE, SKIN CANCER 1999, fell & fx. nose recently History of Any Multi-Drug Resistant Organisms: None Reported Past Surgical History: Appendectomy, Bladder Surgery, Hysterectomy, Joint Replacement Additional Past Surgical History / Comment(s): colostomy for perforated bowel,MARILEE carpal tunnel surgery and 8 trigger finger surgeries, cataracts removed, LT KNEE REPLACEMENT,HEMORRHOIDECTOMY Past Anesthesia/Blood Transfusion Reactions: Motion Sickness, Postoperative Nausea & Vomiting (PONV) Past Psychological History: Anxiety, Depression Smoking Status: Never smoker Past Alcohol Use History: None Reported Past Drug Use History: None Reported - Past Family History Brother(s) Family Medical History: Cancer Additional Family Medical History / Comment(s): BRAIN CANCER Daughter(s) Family Medical History: Cancer Additional Family Medical History / Comment(s): SKIN CANCER Mother Family Medical History: Congestive Heart Failure (CHF) Father Family Medical History: Musculoskeletal Disorder General Exam - General Exam Comments Initial Comments: his is a well-developed asthenic appearing female who is awake alert oriented 3 Limitations: no limitations General appearance: alert, in no apparent distress Head exam: Present: atraumatic, normocephalic, normal inspection Eye exam: Present: normal appearance, PERRL, EOMI. Absent: scleral icterus, conjunctival injection, periorbital swelling ENT exam: Present: mucous membranes dry Neck exam: Present: normal inspection, full ROM, other (no stridor JVD or bruits). Absent: tenderness, meningismus, lymphadenopathy Respiratory exam: Present: normal lung sounds bilaterally. Absent: respiratory distress, wheezes, rales, rhonchi, stridor Cardiovascular Exam: Present: regular rate, normal rhythm, normal heart sounds. Absent: systolic murmur, diastolic murmur, rubs, gallop, clicks GI/Abdominal exam: Present: soft, normal bowel sounds, other (colostomy present). Absent: distended, tenderness, guarding, rebound, rigid Extremities exam: Present: normal inspection, full ROM, normal capillary refill. Absent: tenderness, pedal edema, joint swelling, calf tenderness Back exam: Present: normal inspection Neurological exam: Present: alert, oriented X3, CN II-XII intact Psychiatric exam: Present: normal affect, normal mood Skin exam: Present: warm, dry, intact, normal color. Absent: rash Course Vital Signs 08/08/20 08/08/20 10:48 11:57 Temperature 97.6 F Pulse Rate 60 58 L Respiratory 18 18 Rate Blood Pressure 116/58 154/63 O2 Sat by Pulse 99 100 Oximetry EKG Findings - EKG Results: EKG: interpreted by SANDY, sinus rhythm (Sinus bradycardia 55. Interval 140 QRS duration 128 QT since QTC 498/476 red bundle-branch block pattern no acute ST-T wave changes) Medical Decision Making - Medical Decision Making I did discuss findings the patient's family the patient does have dementia and short-term memory issues. Patient will be discharged the presentation is consistent with vertigo and dehydration. Patient does have a prescription for meclizine already. She is encouraged to increase her oral fluids which she's not been doing she did ably without difficulty with assistance she does use a walker at home. - Lab Data Result diagrams: 08/08/20 11:07 08/08/20 11:07 Lab Results 1008/08/20 08/08/20 Range/Units 11:07 11:07 11:07 WBC 4.1 (3.8-10.6) k/uL RBC 4.13 (3.80-5.40) m/uL Hgb 13.2 (11.4-16.0) gm/dL Hct 40.3 (34.0-46.0) % MCV 97.6 (80.0-100.0) fL MCH 31.9 (25.0-35.0) pg MCHC 32.7 (31.0-37.0) g/dL RDW 13.8 (11.5-15.5) % Plt Count 138 L (150-450) k/uL Neutrophils % 63 % Lymphocytes % 25 % Monocytes % 5 % Eosinophils % 3 % Basophils % 2 % Neutrophils # 2.6 (1.3-7.7) k/uL Lymphocytes # 1.0 (1.0-4.8) k/uL Monocytes # 0.2 (0-1.0) k/uL Eosinophils # 0.1 (0-0.7) k/uL Basophils # 0.1 (0-0.2) k/uL Sodium 139 (137-145) mmol/L Potassium 4.0 (3.5-5.1) mmol/L Chloride 107 (98-107) mmol/L Carbon Dioxide 26 (22-30) mmol/L Anion Gap 6 mmol/L BUN 24 H (7-17) mg/dL Creatinine 1.02 (0.52-1.04) mg/dL Est GFR (CKD-EPI)AfAm 57 (>60 ml/min/1.73 sqM) Est GFR (CKD-EPI)NonAf 49 (>60 ml/min/1.73 sqM) Glucose 118 H (74-99) mg/dL Calcium 9.3 (8.4-10.2) mg/dL Magnesium 2.0 (1.6-2.3) mg/dL Total Bilirubin 0.4 (0.2-1.3) mg/dL AST 38 H (14-36) U/L ALT 19 (4-34) U/L Alkaline Phosphatase 128 H (38-126) U/L Troponin I (0.000-0.034) ng/mL Total Protein 6.8 (6.3-8.2) g/dL Albumin 3.9 (3.5-5.0) g/dL Urine Color Yellow Urine Appearance Cloudy H (Clear) Urine pH 7.0 (5.0-8.0) Ur Specific [place] 1.014 (1.001-1.035) Urine Protein Negative (Negative) Urine Glucose (UA) Negative (Negative) Urine Ketones Negative (Negative) Urine Blood Negative (Negative) Urine Nitrite Negative (Negative) Urine Bilirubin Negative (Negative) Urine Urobilinogen <2.0 (<2.0) mg/dL Ur Leukocyte Esterase Small H (Negative) Urine RBC 7 H (0-5) /hpf Urine WBC <1 (0-5) /hpf Ur Squamous Epith Cells <1 (0-4) /hpf Urine Bacteria Rare H (None) /hpf Hyaline Casts 11 H (0-2) /lpf Urine Mucus Rare H (None) /hpf 08/08/20 Range/Units 11:07 WBC (3.8-10.6) k/uL RBC (3.80-5.40) m/uL Hgb (11.4-16.0) gm/dL Hct (34.0-46.0) % MCV (80.0-100.0) fL MCH (25.0-35.0) pg MCHC (31.0-37.0) g/dL RDW (11.5-15.5) % Plt Count (150-450) k/uL Neutrophils % % Lymphocytes % % Monocytes % % Eosinophils % % Basophils % % Neutrophils # (1.3-7.7) k/uL Lymphocytes # (1.0-4.8) k/uL Monocytes # (0-1.0) k/uL Eosinophils # (0-0.7) k/uL Basophils # (0-0.2) k/uL Sodium (137-145) mmol/L Potassium (3.5-5.1) mmol/L Chloride (98-107) mmol/L Carbon Dioxide (22-30) mmol/L Anion Gap mmol/L BUN (7-17) mg/dL Creatinine (0.52-1.04) mg/dL Est GFR (CKD-EPI)AfAm (>60 ml/min/1.73 sqM) Est GFR (CKD-EPI)NonAf (>60 ml/min/1.73 sqM) Glucose (74-99) mg/dL Calcium (8.4-10.2) mg/dL Magnesium (1.6-2.3) mg/dL Total Bilirubin (0.2-1.3) mg/dL AST (14-36) U/L ALT (4-34) U/L Alkaline Phosphatase (38-126) U/L Troponin I <0.012 (0.000-0.034) ng/mL Total Protein (6.3-8.2) g/dL Albumin (3.5-5.0) g/dL Urine Color Urine Appearance (Clear) Urine pH (5.0-8.0) Ur Specific [place] (1.001-1.035) Urine Protein (Negative) Urine Glucose (UA) (Negative) Urine Ketones (Negative) Urine Blood (Negative) Urine Nitrite (Negative) Urine Bilirubin (Negative) Urine Urobilinogen (<2.0) mg/dL Ur Leukocyte Esterase (Negative) Urine RBC (0-5) /hpf Urine WBC (0-5) /hpf Ur Squamous Epith Cells (0-4) /hpf Urine Bacteria (None) /hpf Hyaline Casts (0-2) /lpf Urine Mucus (None) /hpf - Radiology Data Radiology results: report reviewed (I did review the imaging and report no acute findings.), image reviewed Disposition Clinical Impression: Benign paroxysmal positional vertigo, Dehydration Disposition: HOME SELF-CARE Condition: Good Instructions (If sedation given, give patient instructions): Dizziness (ED), Benign Paroxysmal Positional Vertigo (ED), Dehydration (ED) Is patient prescribed a controlled substance at d/c from ED?: No Referrals: Josselyn Cheney MD [Primary Care Provider] - 1-2 days
[2020-08-08 11:27] LABS: Basophils # (A) 0.1 k/uL (0-0.2); Basophils % (A) 2 %; Eosinophils # (A) 0.1 k/uL (0-0.7); Eosinophils % (A) 3 %; HCT 40.3 % (34.0-46.0); HGB 13.2 gm/dL (11.4-16.0); Lymphocytes % (A) 25 %; MCH 31.9 pg (25.0-35.0); MCHC 32.7 g/dL (31.0-37.0); MCV 97.6 fL (80.0-100.0); Monocytes # (A) 0.2 k/uL (0-1.0); Monocytes % (A) 5 %; Neutrophils # (A) 2.6 k/uL (1.3-7.7); Neutrophils % (A) 63 %; Platelet Count 138 k/uL (150-450); RBC 4.13 m/uL (3.80-5.40); RDW 13.8 % (11.5-15.5); WBC 4.1 k/uL (3.8-10.6)
[2020-08-08 11:36] LABS: Albumin 3.9 g/dL (3.5-5.0); Calcium 9.3 mg/dL (8.4-10.2); Total Bilirubin 0.4 mg/dL (0.2-1.3); Total Protein 6.8 g/dL (6.3-8.2)
[2020-08-08 11:49] LABS: Appearance,Urine Cloudy (Clear); Bacteria,Urine Rare /hpf; Bilirubin,Urine Negative (Negative); Blood,Urine Negative (Negative); Color,Urine Yellow; Glucose,Urine (UA) Negative (Negative); Hyaline Casts,Urine 11 /lpf (0-2); Ketones,Urine Negative (Negative); Leukocyte Esterase,Urine Small (Negative); Mucus,Urine Rare /hpf; Nitrite,Urine Negative (Negative); Protein,Urine Negative (Negative); RBC,Urine 7 /hpf (0-5); Specific Gravity,Urine 1.014 (1.001-1.035); Squamous Epithelial Cell,Urine <1 /hpf (0-4); Urobilinogen,Urine <2.0 mg/dL (<2.0); WBC,Urine <1 /hpf (0-5)
--- NOTE | 2020-08-08 11:54 | XR ---
EXAMINATION TYPE: XR chest 2V DATE OF EXAM: 08/08/2020 COMPARISON: Prior chest x-ray March 13, 2016 HISTORY: Dizziness with weakness. TECHNIQUE: Frontal and lateral views of the chest are obtained. FINDINGS: There is chronic fibrotic change bilaterally without suspicious new focal air space opacit y, pleural effusion, or pneumothorax seen. The cardiac silhouette size is mildly enlarged with ather osclerotic thoracic aorta. Underlying scoliotic curvature with multilevel spurring. Degenerative garay ge bilateral glenohumeral joints. IMPRESSION: Chronic changes and mild cardiomegaly without acute pulmonary process.
[2020-08-08 12:48] VITALS: BP 152/74; PULSE 56; TEMP 97.7
== END 2020-08-08 12:51 | disposition home or self-care (01) ==
LOC: EC 10:42
DX: H81.10 Benign paroxysmal vertigo, unspecified ear (principal); E86.0 Dehydration; F03.90 Unspecified dementia, unspecified severity, without behavioral disturbance, psychotic disturbance, mood disturbance, and anxiety; I10 Essential (primary) hypertension; E78.5 Hyperlipidemia, unspecified; F41.9 Anxiety disorder, unspecified; F32.9 Major depressive disorder, single episode, unspecified; Z79.890 Hormone replacement therapy; Z79.899 Other long term (current) drug therapy; Z88.0 Allergy status to penicillin; Z88.1 Allergy status to other antibiotic agents; Z88.2 Allergy status to sulfonamides; Z86.711 Personal history of pulmonary embolism; Z85.828 Personal history of other malignant neoplasm of skin; Z93.3 Colostomy status
CPT/HCPCS: 36415; 71046; 80053; 81001; 83735; 84484; 85025; 93005; 96360; 96361; 99284

== ENCOUNTER 2020-10-23 22:37 | Inpatient (IN) | payer MEDICARE, BC ==
[2020-10-23] MEDS ORDERED: SODIUM CHLORIDE 0.9% 1,000 ML IV STA (22:45)
--- NOTE | 2020-10-23 22:58 | ED ---
Weakness HPI - General Chief complaint: Recheck/Abnormal Lab/Rx Stated complaint: Not feeling well Time Seen by Provider: 10/23/20 22:42 Source: patient, EMS, RN notes reviewed, old records reviewed Mode of arrival: EMS Limitations: no limitations - History of Present Illness Initial comments: This is an 89-year-old female DF for evaluation of weakness and altered mental status. Patient has dementia so unsure of story. Patient states she does not feel well. Unsure patient came from home or other place. Patient denying any fevers nausea vomiting or diarrhea has no other new complaints. Today patient just by EMS EMS states patient also complains of weakness they're unsure who called EMS who called to bring patient to the hospital. MD Complaint: generalized weakness -: unknown Location: generalized Severity: moderate Severity scale (1-10): 5 Consistency: constant Improves with: none Worsens with: none Context: recent illness, history of similar Associated Symptoms: loss of appetite - Related Data Home Medications Medication Instructions Recorded Confirmed Latanoprost Ophth [Xalatan 0.005%] 1 drops BOTH EYES 08/24/14 03/24/19 Meclizine [Antivert] 12.5 mg PO DAILY@1700 08/24/14 03/24/19 allopurinoL [Zyloprim] 150 mg PO DAILY@1200 01/24/16 03/24/19 metHOTREXate sodium [Methotrexate] 17.5 mg PO WE 01/24/16 03/24/19 Acetaminophen [Tylenol Arthritis 650 mg PO HS 03/13/16 03/24/19 8-hr] Brimonidine Tartrate [Alphagan P 1 drops BOTH EYES 03/13/16 03/24/19 0.1% Ophth Soln] Folic Acid 1 mg PO DAILY@1200 03/13/16 03/24/19 Potassium Chloride ER [K-Dur 20] 20 meq PO DAILY 03/13/16 03/24/19 Donepezil [Aricept] 10 mg PO DAILY 03/16/19 03/24/19 Ferrex-28 0.5 tab PO DAILY@1200 03/16/19 03/24/19 Furosemide [Lasix] 20 mg PO DAILY@1200 03/16/19 03/24/19 Levothyroxine Sodium [Synthroid] 88 mcg PO DAILY 03/16/19 03/24/19 Memantine [Namenda] 10 mg PO BID 03/16/19 03/24/19 Omeprazole [PriLOSEC] 20 mg PO DAILY 03/16/19 03/24/19 Sertraline [Zoloft] 50 mg PO HS 03/16/19 03/24/19 Carboxymethylcellulos/Glycerin 1 drop BOTH EYES DAILY 03/24/19 03/24/19 [Refresh Repair 0.5-0.9% Drop] Previous Rx's Medication Instructions Recorded Doxycycline [Vibramycin] 100 mg PO BID 5 Days #10 capsule 03/18/19 Clindamycin HCl 150 mg PO Q12HR #20 cap 03/25/19 Allergies Allergy/AdvReac Type Severity Reaction Status Date / Time ciprofloxacin HCl Allergy Intermediate Rash/Hives Verified 10/23/20 22:41 [From Cipro] Penicillins Allergy Rash/Hives Verified 10/23/20 22:41 Sulfa (Sulfonamide Allergy Rash/Hives Verified 10/23/20 22:41 Antibiotics) Review of Systems ROS Statement: Those systems with pertinent positive or pertinent negative responses have been documented in the HPI. ROS Other: All systems not noted in ROS Statement are negative. Past Medical History Past Medical History: Cancer, Dementia, Hyperlipidemia, Hypertension, Memory Impairment, Osteoarthritis (OA), Pneumonia, Pulmonary Embolus (PE), Thyroid Disorder Additional Past Medical History / Comment(s): PAST GOUT, GLAUCOMA, BLOOD CLOTS 2011, finishing antibiotics for UTI, LEAKAGE OF URINE WEARS A PAD, DIVERTICULAR DISEASE, SKIN CANCER 1999, fell & fx. nose recently History of Any Multi-Drug Resistant Organisms: None Reported Past Surgical History: Appendectomy, Bladder Surgery, Hysterectomy, Joint Replacement Additional Past Surgical History / Comment(s): colostomy for perforated bowel,MARILEE carpal tunnel surgery and 8 trigger finger surgeries, cataracts removed, LT KNEE REPLACEMENT,HEMORRHOIDECTOMY Past Anesthesia/Blood Transfusion Reactions: Motion Sickness, Postoperative Nausea & Vomiting (PONV) Past Psychological History: Anxiety, Depression Smoking Status: Never smoker Past Alcohol Use History: None Reported Past Drug Use History: None Reported - Past Family History Brother(s) Family Medical History: Cancer Additional Family Medical History / Comment(s): BRAIN CANCER Daughter(s) Family Medical History: Cancer Additional Family Medical History / Comment(s): SKIN CANCER Mother Family Medical History: Congestive Heart Failure (CHF) Father Family Medical History: Musculoskeletal Disorder General Exam Limitations: no limitations General appearance: alert, in no apparent distress Head exam: Present: atraumatic, normocephalic, normal inspection Eye exam: Present: normal appearance, PERRL, EOMI. Absent: scleral icterus, conjunctival injection, periorbital swelling ENT exam: Present: normal exam, mucous membranes moist Neck exam: Present: normal inspection. Absent: tenderness, meningismus, lymphadenopathy Respiratory exam: Present: normal lung sounds bilaterally. Absent: respiratory distress, wheezes, rales, rhonchi, stridor Cardiovascular Exam: Present: regular rate, normal rhythm, normal heart sounds. Absent: systolic murmur, diastolic murmur, rubs, gallop, clicks GI/Abdominal exam: Present: soft, normal bowel sounds. Absent: distended, tenderness, guarding, rebound, rigid Extremities exam: Present: normal inspection, full ROM, normal capillary refill. Absent: tenderness, pedal edema, joint swelling, calf tenderness Back exam: Present: normal inspection Neurological exam: Present: alert, oriented X3, CN II-XII intact Psychiatric exam: Present: normal affect, normal mood Skin exam: Present: warm, dry, intact, normal color. Absent: rash Course Vital Signs 10/23/20 10/23/20 10/24/20 22:41 23:35 00:00 Temperature 97.9 F Pulse Rate 72 63 67 Respiratory 20 18 18 Rate Blood Pressure 117/71 118/59 122/55 O2 Sat by Pulse 99 99 98 Oximetry - Reevaluation(s) Reevaluation #1: 10/24/20 00:13 Medical records reviewed Reevaluation #2: 10/24/20 00:13 On further evaluation patient comes from [facility] seen 11 who did call EMS - Consultations Consultation #1: Spoke with Dr. Cheney who will admit this patient EKG Findings - EKG Comments: EKG Findings:: EKG shows sinus rhythm 70, LA 120 QRS 132 QTC 496 Medical Decision Making - Medical Decision Making 89 female to the ER for evaluation patient presents today for evaluation of weakness patient does have UTI will admit for treatment of the UTIs patient is not a mental capability to take antibiotics on her own - Lab Data Result diagrams: 10/23/20 23:03 10/23/20 23:03 Lab Results 10/23/20 10/23/20 10/23/20 Range/Units 23:03 23:03 23:03 WBC 9.1 (3.8-10.6) k/uL RBC 4.55 (3.80-5.40) m/uL Hgb 14.2 (11.4-16.0) gm/dL Hct 41.4 (34.0-46.0) % MCV 90.9 (80.0-100.0) fL MCH 31.2 (25.0-35.0) pg MCHC 34.3 (31.0-37.0) g/dL RDW 14.0 (11.5-15.5) % Plt Count 184 (150-450) k/uL MPV 9.0 Neutrophils % 74 % Lymphocytes % 19 % Monocytes % 4 % Eosinophils % 1 % Basophils % 1 % Neutrophils # 6.7 (1.3-7.7) k/uL Lymphocytes # 1.7 (1.0-4.8) k/uL Monocytes # 0.3 (0-1.0) k/uL Eosinophils # 0.1 (0-0.7) k/uL Basophils # 0.1 (0-0.2) k/uL Sodium 134 L (137-145) mmol/L Potassium 3.2 L (3.5-5.1) mmol/L Chloride 104 (98-107) mmol/L Carbon Dioxide 24 (22-30) mmol/L Anion Gap 6 mmol/L BUN 39 H (7-17) mg/dL Creatinine 1.18 H (0.52-1.04) mg/dL Est GFR (CKD-EPI)AfAm 47 (>60 ml/min/1.73 sqM) Est GFR (CKD-EPI)NonAf 41 (>60 ml/min/1.73 sqM) Glucose 98 (74-99) mg/dL Plasma Lactic Acid [place] 1.5 (0.7-2.0) mmol/L Calcium 9.1 (8.4-10.2) mg/dL Phosphorus 3.0 (2.5-4.5) mg/dL Magnesium 2.1 (1.6-2.3) mg/dL Total Bilirubin 0.5 (0.2-1.3) mg/dL AST 31 (14-36) U/L ALT 20 (4-34) U/L Alkaline Phosphatase 118 (38-126) U/L Creatine Kinase 32 (30-135) U/L Troponin I (0.000-0.034) ng/mL Total Protein 6.7 (6.3-8.2) g/dL Albumin 3.5 (3.5-5.0) g/dL Urine Color Urine Appearance (Clear) Urine pH (5.0-8.0) Ur Specific [place] (1.001-1.035) Urine Protein (Negative) Urine Glucose (UA) (Negative) Urine Ketones (Negative) Urine Blood (Negative) Urine Nitrite (Negative) Urine Bilirubin (Negative) Urine Urobilinogen (<2.0) mg/dL Ur Leukocyte Esterase (Negative) Urine RBC (0-5) /hpf Urine WBC (0-5) /hpf Ur Squamous Epith Cells (0-4) /hpf Urine Bacteria (None) /hpf Hyaline Casts (0-2) /lpf Urine Mucus (None) /hpf 10/23/20 10/23/20 Range/Units 23:03 23:11 WBC (3.8-10.6) k/uL RBC (3.80-5.40) m/uL Hgb (11.4-16.0) gm/dL Hct (34.0-46.0) % MCV (80.0-100.0) fL MCH (25.0-35.0) pg MCHC (31.0-37.0) g/dL RDW (11.5-15.5) % Plt Count (150-450) k/uL MPV Neutrophils % % Lymphocytes % % Monocytes % % Eosinophils % % Basophils % % Neutrophils # (1.3-7.7) k/uL Lymphocytes # (1.0-4.8) k/uL Monocytes # (0-1.0) k/uL Eosinophils # (0-0.7) k/uL Basophils # (0-0.2) k/uL Sodium (137-145) mmol/L Potassium (3.5-5.1) mmol/L Chloride (98-107) mmol/L Carbon Dioxide (22-30) mmol/L Anion Gap mmol/L BUN (7-17) mg/dL Creatinine (0.52-1.04) mg/dL Est GFR (CKD-EPI)AfAm (>60 ml/min/1.73 sqM) Est GFR (CKD-EPI)NonAf (>60 ml/min/1.73 sqM) Glucose (74-99) mg/dL Plasma Lactic Acid [place] (0.7-2.0) mmol/L Calcium (8.4-10.2) mg/dL Phosphorus (2.5-4.5) mg/dL Magnesium (1.6-2.3) mg/dL Total Bilirubin (0.2-1.3) mg/dL AST (14-36) U/L ALT (4-34) U/L Alkaline Phosphatase (38-126) U/L Creatine Kinase (30-135) U/L Troponin I 0.029 (0.000-0.034) ng/mL Total Protein (6.3-8.2) g/dL Albumin (3.5-5.0) g/dL Urine Color Yellow Urine Appearance Cloudy H (Clear) Urine pH 5.5 (5.0-8.0) Ur Specific [place] 1.025 (1.001-1.035) Urine Protein 1+ H (Negative) Urine Glucose (UA) Negative (Negative) Urine Ketones Negative (Negative) Urine Blood Negative (Negative) Urine Nitrite Negative (Negative) Urine Bilirubin Negative (Negative) Urine Urobilinogen <2.0 (<2.0) mg/dL Ur Leukocyte Esterase Large H (Negative) Urine RBC 1 (0-5) /hpf Urine WBC 128 H (0-5) /hpf Ur Squamous Epith Cells 2 (0-4) /hpf Urine Bacteria Rare H (None) /hpf Hyaline Casts 6 H (0-2) /lpf Urine Mucus Rare H (None) /hpf Disposition Clinical Impression: Weakness, UTI (urinary tract infection) Disposition: ADMITTED IP TO THIS HOSP Condition: Fair Is patient prescribed a controlled substance at d/c from ED?: No Referrals: Josselyn Cheney MD [Primary Care Provider] - 1-2 days
[2020-10-23 23:12] LABS: Basophils # (A) 0.1 k/uL (0-0.2); Basophils % (A) 1 %; Eosinophils # (A) 0.1 k/uL (0-0.7); Eosinophils % (A) 1 %; HCT 41.4 % (34.0-46.0); HGB 14.2 gm/dL (11.4-16.0); Lymphocytes # (A) 1.7 k/uL (1.0-4.8); Lymphocytes % (A) 19 %; MCH 31.2 pg (25.0-35.0); MCHC 34.3 g/dL (31.0-37.0); MCV 90.9 fL (80.0-100.0); Monocytes # (A) 0.3 k/uL (0-1.0); Monocytes % (A) 4 %; Neutrophils # (A) 6.7 k/uL (1.3-7.7); Neutrophils % (A) 74 %; Platelet Count 184 k/uL (150-450); RBC 4.55 m/uL (3.80-5.40); WBC 9.1 k/uL (3.8-10.6)
[2020-10-23 23:29] LABS: Albumin 3.5 g/dL (3.5-5.0); Calcium 9.1 mg/dL (8.4-10.2); Magnesium 2.1 mg/dL (1.6-2.3); Potassium 3.2 mmol/L (3.5-5.1); Total Bilirubin 0.5 mg/dL (0.2-1.3); Total Protein 6.7 g/dL (6.3-8.2)
[2020-10-23 23:56] LABS: Appearance,Urine Cloudy (Clear); Bacteria,Urine Rare /hpf; Bilirubin,Urine Negative (Negative); Blood,Urine Negative (Negative); Color,Urine Yellow; Glucose,Urine (UA) Negative (Negative); Hyaline Casts,Urine 6 /lpf (0-2); Ketones,Urine Negative (Negative); Leukocyte Esterase,Urine Large (Negative); Mucus,Urine Rare /hpf; Nitrite,Urine Negative (Negative); PH, Urine 5.5 (5.0-8.0); Protein,Urine 1+ (Negative); RBC,Urine 1 /hpf (0-5); Specific Gravity,Urine 1.025 (1.001-1.035); Squamous Epithelial Cell,Urine 2 /hpf (0-4); Urobilinogen,Urine <2.0 mg/dL (<2.0); WBC,Urine 128 /hpf (0-5)
[2020-10-24] MEDS ORDERED: SODIUM CHLORIDE 0.9% 1,000 ML IV STA ×2 (00:11)
[2020-10-24] MEDS ORDERED: NALOXONE 0.4 MG/ML 1 ML VIAL IV PRN (00:11)
[2020-10-24] MEDS: IOPAMIDOL CONTRAST (ORAL USE) VIAL PO PRN ×2 (15:14→15:15)
[2020-10-24] MEDS ORDERED: ACETAMINOPHEN PO PRN (17:09)
[2020-10-24] MEDS ORDERED: IPRATROPIUM BROMIDE 0.06% NASAL SPRAY (15 ML) EA NOSTRIL PRN (17:09)
[2020-10-24] MEDS ORDERED: DEXTROMETHORPHAN PO PRN (17:09)
[2020-10-24] MEDS ORDERED: ARTIFICIAL TEARS-HYPROMELLOSE DROPS 15 ML BTL BOTH EYES PRN (17:09)
[2020-10-24] MEDS ORDERED: [UNRECOGNIZED DRUG - OTHER] PO PRN (17:09)
[2020-10-24] MEDS ORDERED: DOXYLAMINE PO PRN (17:09)
[2020-10-24] MEDS ORDERED: guaiFENesin-Coden 100-10MG/5ML 10 ML CUP PO PRN (17:09)
[2020-10-24] MEDS ORDERED: Potassium Replacement Protocol 1 EACH MISC MISCELLANE PRN (17:11)
--- NOTE | 2020-10-24 17:22 | P.HPIM ---
History of Present Illness H&P Date: 10/24/20 Linda Wilson, is an 89-year-old female who presented to [facility] emergency room with generalized weakness and abdominal pain patient was evaluated in the emergency room, her vital examination on presentation revealed a temperature of 97.4 pulse 69 respiration 18 pressure 109/59 pulse ox 98% on room air her white blood count was 9.1 hemoglobin 14.2 platelet count 184 sodium 134 potassium 3.2 BUN 39 creatinine 1.18 urine analysis revealed evidence of urinary tract infection patient was admitted to medical floor for further evaluation and treatment. Patient has known history of advanced dementia she also has a history of hypertension, gout, hypothyroidism, gastroesophageal reflux disease, depression, history of glaucoma remote history of DVT, in 2011 and history of diverticulosis with perforated . bowel requiring colostomy placement. Review of system is somewhat limited due to patient advanced dementia, however she is complaining of feeling weak and having some abdominal discomfort she denies any chest pain or shortness of breath Past Medical History Past Medical History: Cancer, Dementia, Hyperlipidemia, Hypertension, Memory Impairment, Osteoarthritis (OA), Pneumonia, Pulmonary Embolus (PE), Thyroid Disorder Additional Past Medical History / Comment(s): PAST GOUT, GLAUCOMA, BLOOD CLOTS 2011, finishing antibiotics for UTI, LEAKAGE OF URINE WEARS A PAD, DIVERTICULAR DISEASE, SKIN CANCER 1999, fell & fx. nose recently History of Any Multi-Drug Resistant Organisms: None Reported Past Surgical History: Appendectomy, Bladder Surgery, Hysterectomy, Joint Replacement Additional Past Surgical History / Comment(s): colostomy for perforated bowel,MARILEE carpal tunnel surgery and 8 trigger finger surgeries, cataracts removed, LT KNEE REPLACEMENT,HEMORRHOIDECTOMY Past Anesthesia/Blood Transfusion Reactions: Motion Sickness, Postoperative Nausea & Vomiting (PONV) Past Psychological History: Anxiety, Depression Additional Psychological History / Comment(s): PT WAS FOR 64 YEARS- SPOUSE 3 YEARS AGO. PT ADMITS TO FEELING DEPRESSED SINCE HIS PASSING BUT DENIES ANY THOUGHTS OF HARMING SELF.HAS HOME CARE NURSE VISIT ONCE A WEEK AND HAS LIFE ALERT. Smoking Status: Never smoker Past Alcohol Use History: None Reported Past Drug Use History: None Reported - Past Family History Brother(s) Family Medical History: Cancer Additional Family Medical History / Comment(s): BRAIN CANCER Daughter(s) Family Medical History: Cancer Additional Family Medical History / Comment(s): SKIN CANCER Mother Family Medical History: Congestive Heart Failure (CHF) Father Family Medical History: Musculoskeletal Disorder Medications and Allergies Home Medications Medication Instructions Recorded Confirmed Type Latanoprost Ophth [Xalatan 0.005%] 1 drop BOTH EYES HS@199908/24/14 10/24/20 History Meclizine [Antivert] 12.5 mg PO DAILY@1800 08/24/14 10/24/20 History allopurinoL [Zyloprim] 150 mg PO DAILY@119901/24/16 10/24/20 History metHOTREXate sodium [Methotrexate] 17.5 mg PO WE@199901/24/16 10/24/20 History Acetaminophen [Tylenol Arthritis 650 - 1,300 mg PO HS@199903/13/16 10/24/20 History 8-hr] Brimonidine Tartrate [Alphagan P 1 drop BOTH EYES HS@199903/13/16 10/24/20 History 0.1% Ophth Soln] Folic Acid 1 mg PO DAILY@119903/13/16 10/24/20 History Ferrex-28 0.5 tab PO DAILY@119903/16/19 10/24/20 History Furosemide [Lasix] 20 mg PO DAILY@0803/16/19 10/24/20 History Memantine [Namenda] 10 mg PO BID@799,199903/16/19 10/24/20 History Omeprazole [PriLOSEC] 20 mg PO DAILY@0803/16/19 10/24/20 History Sertraline [Zoloft] 50 mg PO HS@199903/16/19 10/24/20 History Artificial Tears-Hypromellose 1 drop BOTH EYES DAILY PRN 10/24/20 10/24/20 History [Artificial Tear Drops] Ascorbic Acid [Vitamin C] 500 mg PO DAILY@0810/24/20 10/24/20 History Cholecalciferol (Vitamin D3) 125 mcg PO DAILY@119910/24/20 10/24/20 History [Vitamin D3 (5000 units)] Dm/Acetaminophen/Doxylamine [Vicks 15 ml PO HS PRN 10/24/20 10/24/20 History Nyquil Cold-Flu Liquid] Donepezil 23mg 23 mg PO DAILY@0810/24/20 10/24/20 History Ipratropium [place] 0.06%Nasal 1 spray EA NOSTRIL Q4H PRN 10/24/20 10/24/20 History [Atrovent Nasal 0.06%] Levothyroxine Sodium 112 mcg PO DAILY@0700 10/24/20 10/24/20 History Potassium Chloride ER [K-Dur 10] 10 meq PO DAILY@0800 10/24/20 10/24/20 History Vit C/E/Zn/Coppr/Lutein/Zeaxan 1 cap PO BID@0800,199910/24/20 10/24/20 History [Preservision Areds 2 Softgel] Zinc 50 mg PO DAILY@0800 10/24/20 10/24/20 History carvediloL [Coreg] 3.125 mg PO BID@0800,1800 10/24/20 10/24/20 History guaiFENesin-Coden 100-10MG/5ML 5 ml PO Q4H PRN 10/24/20 10/24/20 History [Robitussin AC] Allergies Allergy/AdvReac Type Severity Reaction Status Date / Time ciprofloxacin HCl Allergy Intermediate Rash/Hives Verified 10/24/20 07:21 [From Cipro] Penicillins Allergy Rash/Hives Verified 10/24/20 07:21 Sulfa (Sulfonamide Allergy Rash/Hives Verified 10/24/20 07:21 Antibiotics) Physical Exam Vitals: Vital Signs Temp Pulse Pulse Pulse Resp BP BP 10/24/20 07:58 63 65 16 10/24/20 07:56 97.5 F L 63 16 10/24/20 01:26 97.2 F L 65 18 131/64 10/24/20 00:47 97.2 F L 65 16 10/24/20 00:00 67 18 122/55 10/23/20 23:35 63 18 118/59 10/23/20 22:41 97.9 F 72 20 117/71 BP Pulse Ox 10/24/20 07:58 10/24/20 07:56 137/74 98 10/24/20 01:26 100 10/24/20 00:47 131/64 100 10/24/20 00:00 98 10/23/20 23:35 99 10/23/20 22:41 99 Intake and Output 10/23/20 10/24/20 10/24/20 22:59 06:59 14:59 Intake Total 650 200 Balance 650 200 Intake: Intake, IV Titration 650 Amount Sodium Chloride 0.9% 1, 650 000 ml @ 130 mls/hr IV . Q7H42M STA Rx#:[id number] Oral 200 Other: # Voids 1 Weight 71.668 kg 71.668 kg In general patient is alert and oriented 3 in no apparent distress HEENT head normocephalic and atraumatic Neck is supple no JVD no goiter no lymphadenopathy Chest exam reveals a few scattered rhonchi bilaterally no wheezing Cardiac exam reveals regular heart sounds S1 and S2 no gallops no murmurs Abdomen is soft nontender no organomegaly with normal bowel sounds Extremity exam reveals no edema no cyanosis or clubbing Neurological exam reveals no acute gross focal deficit Results CBC & Chem 7: 10/23/20 23:03 10/23/20 23:03 Labs: Abnormal Lab Results - Last 24 Hours (Table) 10/23/20 10/23/20 Range/Units 23:03 23:11 Sodium 134 L (137-145) mmol/L Potassium 3.2 L (3.5-5.1) mmol/L BUN 39 H (7-17) mg/dL Creatinine 1.18 H (0.52-1.04) mg/dL Urine Appearance Cloudy H (Clear) Urine Protein 1+ H (Negative) Ur Leukocyte Esterase Large H (Negative) Urine WBC 128 H (0-5) /hpf Urine Bacteria Rare H (None) /hpf Hyaline Casts 6 H (0-2) /lpf Urine Mucus Rare H (None) /hpf Microbiology - Last 24 Hours (Table) 10/23/20 23:11 Urine Culture - Preliminary Urine,Voided Thrombosis Risk Factor Assmnt - Choose All That Apply Any of the Below Risk Factors Present?: No Other Risk Factors: Yes Each Risk Factor Represents 3 Points: Age 75 years or older, History of DVT/PE Other congenital or acquired thrombophilia - If yes, enter type in comment: No Thrombosis Risk Factor Assessment Total Risk Factor Score: 6 Thrombosis Risk Factor Assessment Level: High Risk Assessment and Plan Plan: 1. Urinary tract infection, patient was started on IV Rocephin in the emergency room awaiting urine culture was 2. Dehydration with acute kidney injury, with elevated BUN and creatinine patient was started on gentle hydration with monitor kidney function closely 3. Hypokalemia correcting 4. Generalized weakness, Will consult physical therapy and occupational therapy 5. Abdominal pain, will check computed tomography scan of the abdomen and pelvis with oral contrast without IV contrast 6. Underlying history of gout. 7. Underlying history of hypertension 8. Underlying history of hypothyroidism 9. Previous history of bowel perforation with colostomy placement At this time will continue with IV Rocephin awaiting urine culture results home medications reviewed and reordered will correct potassium and hydrate patient gently Will check computed tomography scan of the abdomen and pelvis recheck labs in a.m. check chest x-ray will follow in a.m.
--- NOTE | 2020-10-24 19:42 | CT ---
EXAMINATION TYPE: CT abdomen pelvis wo con DATE OF EXAM: 10/24/2020 COMPARISON: 01/12/2014. HISTORY: Abdominal pain. CT DLP: 318.3 mGycm Automated exposure control for dose reduction was used. TECHNIQUE: Helical acquisition of images was performed from the lung bases through the pelvis. FINDINGS: LUNG BASES: Small to moderate bibasilar patchy ground glass opacities. No significant pleural effusio n. LIVER/GB: No significant abnormality is appreciated. PANCREAS: No significant abnormality is seen. SPLEEN: No significant abnormality is seen. ADRENALS: No significant abnormality is seen. KIDNEYS: No significant abnormality is seen. FREE AIR: No free air is visualized RETROPERITONEAL ADENOPATHY: None visualized REPRODUCTIVE ORGANS: No significant abnormality is seen URINARY BLADDER: Decompressed, otherwise unremarkable. PELVIC ADENOPATHY: None visualized. OSSEOUS STRUCTURES: No acute abnormality. Moderate to severe lumbar spondylosis with marked dextroco nvex scoliosis. BOWEL: No bowel obstruction, free air or fluid. Left colostomy is seen. OTHER: Moderate to advanced atherosclerotic disease. IMPRESSION: BIBASILAR PATCHY GROUND GLASS OPACITIES, CONCERNING FOR COVID PNEUMONIA. RECOMMEND CLINICAL CORRELATI ON. NO DEFINITE ACUTE ABNORMALITY OF THE ABDOMEN/PELVIS. LEFT COLOSTOMY.
[2020-10-24] MEDS: SERTRALINE 50 MG TAB PO SCH (21:08)
[2020-10-24] MEDS: VIT A,C & E-LUTEIN-MINERALS 1 EACH TAB PO SCH (21:08)
[2020-10-24] MEDS: carvediloL 3.125 MG TAB PO SCH (21:09)
[2020-10-24] MEDS: MECLIZINE 12.5 MG TAB PO SCH (21:09)
[2020-10-24] MEDS: BRIMONIDINE TARTRATE 0.2% DROPS 5 ML BTL BOTH EYES SCH (21:09)
[2020-10-24] MEDS: MEMANTINE 10 MG TAB PO SCH (21:09)
[2020-10-24] MEDS: LATANOPROST 0.005% OPHTH DROPS 2.5 ML BTL BOTH EYES SCH (21:10)
[2020-10-25 06:10] LABS: Basophils % (A) 1 %; Eosinophils # (A) 0.1 k/uL (0-0.7); Eosinophils % (A) 2 %; HCT 33.3 % (34.0-46.0); HGB 11.5 gm/dL (11.4-16.0); Lymphocytes # (A) 1.2 k/uL (1.0-4.8); Lymphocytes % (A) 27 %; MCH 31.8 pg (25.0-35.0); MCHC 34.5 g/dL (31.0-37.0); MCV 92.3 fL (80.0-100.0); Mean Platelet Volume 9.8; Monocytes # (A) 0.3 k/uL (0-1.0); Monocytes % (A) 6 %; Neutrophils # (A) 2.8 k/uL (1.3-7.7); Neutrophils % (A) 63 %; Platelet Count 118 k/uL (150-450); RDW 14.2 % (11.5-15.5); WBC 4.5 k/uL (3.8-10.6)
[2020-10-25] MEDS: FUROSEMIDE 20 MG TAB PO SCH (08:14)
[2020-10-25] MEDS: POTASSIUM CHLORIDE ER 10 MEQ TAB.ER.PRT PO SCH (08:14)
[2020-10-25] MEDS: VIT A,C & E-LUTEIN-MINERALS 1 EACH TAB PO SCH ×2 (08:14→20:48)
[2020-10-25] MEDS: PANTOPRAZOLE 40 MG TABLET PO SCH (08:14)
[2020-10-25] MEDS: ASCORBIC ACID 500 MG TAB PO SCH (08:14)
[2020-10-25] MEDS: DONEPEZIL 10 MG TAB PO SCH (08:14)
[2020-10-25] MEDS: LEVOTHYROXINE 112 MCG TAB PO SCH (08:15)
[2020-10-25] MEDS: MEMANTINE 10 MG TAB PO SCH ×2 (08:15→20:50)
[2020-10-25] MEDS: ZINC SULFATE 220 MG CAP PO SCH (08:15)
[2020-10-25] MEDS: carvediloL 3.125 MG TAB PO SCH ×2 (08:16→17:17)
[2020-10-25] MEDS ORDERED: DEXAMETHASONE SOD PHOSPHATE 10 MG/ML 1 ML VIAL IV SCH (09:00)
[2020-10-25] MEDS: ENOXAPARIN 40 MG/0.4 ML SYRINGE SQ SCH (09:22)
--- NOTE | 2020-10-25 10:08 | XR ---
EXAMINATION TYPE: XR chest 1V portable DATE OF EXAM: 10/25/2020 Comparison: 08/08/2020 Clinical History: 89-year-old female follow-up bibasilar infiltrates Findings: Heart borderline in size. Atherosclerotic arch calcifications. Mild hyperinflation mild interstitial prominence appears unchanged. Subtle patchy peripheral densities in a related to overlying soft tissu e and portable technique. Early developing infiltrate difficult to exclude. No pleural effusion. Loss of the subacromial space on the right compatible with full-thickness rotator cuff tear. Impression: 1. Borderline heart size. Possible underlying COPD. 2. Unable to exclude early developing infiltrates in the periphery of the mid lungs. Consider follow- up if symptoms warrant.
[2020-10-25 10:14] LABS: African American GFR (CKD) 75.8 (60.0-200.0); Albumin 2.8 g/dL (3.80-4.90); Albumin/Globulin Ratio 1.65 (1.60-3.17); Anion Gap 5.8 mmol/L (4.00-12.00); BUN/Creat Ratio 26.25 Ratio (12.00-20.00); Carbon Dioxide 25.2 mmol/L (21.6-31.8); Globulin 1.7 g/dL (1.6-3.3); Non-African American GFR(CKD) 65.4 (60.0-200.0); Potassium 3.3 mmol/L (3.5-5.5); Total Bilirubin 0.3 mg/dL (0.3-1.2); Total Protein 4.5 g/dL (6.2-8.2)
[2020-10-25] MEDS ORDERED: Potassium Replacement Protocol 1 EACH MISC MISCELLANE PRN (10:16)
[2020-10-25] MEDS: POTASSIUM CHLORIDE ER 20 MEQ TAB.ER PO SCH ×2 (10:47→12:53)
[2020-10-25] MEDS ORDERED: FERREX PO SCH (12:00)
[2020-10-25] MEDS: CHOLECALCIFEROL 1,000 UNIT TAB PO SCH (12:53)
[2020-10-25] MEDS: FOLIC ACID 1 MG TAB PO SCH (12:53)
[2020-10-25] MEDS: allopurinoL 300 MG TAB PO SCH (12:53)
--- NOTE | 2020-10-25 15:17 | P.CNPUL ---
History of Present Illness Consult date: 10/25/20 Requesting physician: Josselyn Cheney Reason for consult: other Chief complaint: Weakness History of present illness: 89-year-old female, very poor historian, who apparently presents to the emergency room, via EMS, weakness and mental status changes. The patient has dementia, is not able to give much in way of any significant history. She apparently just didn't feel well. The patient was previously positive for jha virus. She appears to probably have a urinary tract infection. I don't believe she has much going on with the lungs at this time. Again is very difficult to get any history from this patient. According to the ER samantha, she was not complaining of any fever, chills, nausea, vomiting, diarrhea, abdominal complaints, chest pain, chest discomfort, shortness of breath, or any other complaints for that matter. Again, the history is very vague. I asked her today why she was here. She was not able to answer me. I asked her whether or not she realized that she was in the hospital and she does have a blank stare. In addition to severe dementia, she has a history of hyperlipidemia, hypertension, pneumonia, pulmonary embolism, osteoarthritis, hypothyroidism, gout, glaucoma, urinary tract infections, and skin cancer. Review of Systems REVIEW OF SYSTEMS: Review of systems are likely not reliable. CONSTITUTIONAL: Weakness. NEUROLOGIC: Mental status changes. HEENT: [ Negative.] CARDIAC: [Negative.] PULMONARY: [Negative.] GI: [Negative.] : [Negative.] RHEUMATOLOGIC: [ Negative.] IMMUNOLOGIC: [ Negative.] ENDOCRINE: [Negative. ] DERMATOLOGIC: [Negative.] Past Medical History Past Medical History: Cancer, Dementia, Hyperlipidemia, Hypertension, Memory Impairment, Osteoarthritis (OA), Pneumonia, Pulmonary Embolus (PE), Thyroid Disorder Additional Past Medical History / Comment(s): PAST GOUT, GLAUCOMA, BLOOD CLOTS 2011, finishing antibiotics for UTI, LEAKAGE OF URINE WEARS A PAD, DIVERTICULAR DISEASE, SKIN CANCER 1999, fell & fx. nose recently History of Any Multi-Drug Resistant Organisms: None Reported Past Surgical History: Appendectomy, Bladder Surgery, Hysterectomy, Joint Replacement Additional Past Surgical History / Comment(s): colostomy for perforated bowel,MARILEE carpal tunnel surgery and 8 trigger finger surgeries, cataracts removed, LT KNEE REPLACEMENT,HEMORRHOIDECTOMY Past Anesthesia/Blood Transfusion Reactions: Motion Sickness, Postoperative Nausea & Vomiting (PONV) Past Psychological History: Anxiety, Depression Additional Psychological History / Comment(s): PT WAS FOR 64 YEARS- SPOUSE 3 YEARS AGO. PT ADMITS TO FEELING DEPRESSED SINCE HIS PASSING BUT DENIES ANY THOUGHTS OF HARMING SELF.HAS HOME CARE NURSE VISIT ONCE A WEEK AND HAS LIFE ALERT. Smoking Status: Never smoker Past Alcohol Use History: None Reported Past Drug Use History: None Reported - Past Family History Brother(s) Family Medical History: Cancer Additional Family Medical History / Comment(s): BRAIN CANCER Daughter(s) Family Medical History: Cancer Additional Family Medical History / Comment(s): SKIN CANCER Mother Family Medical History: Congestive Heart Failure (CHF) Father Family Medical History: Musculoskeletal Disorder Medications and Allergies Home Medications Medication Instructions Recorded Confirmed Type Latanoprost Ophth [Xalatan 0.005%] 1 drop BOTH EYES HS@199908/24/14 10/24/20 History Meclizine [Antivert] 12.5 mg PO DAILY@1800 08/24/14 10/24/20 History allopurinoL [Zyloprim] 150 mg PO DAILY@1200 01/24/16 10/24/20 History metHOTREXate sodium [Methotrexate] 17.5 mg PO WE@199901/24/16 10/24/20 History Acetaminophen [Tylenol Arthritis 650 - 1,300 mg PO HS@199903/13/16 10/24/20 History 8-hr] Brimonidine Tartrate [Alphagan P 1 drop BOTH EYES HS@199903/13/16 10/24/20 History 0.1% Ophth Soln] Folic Acid 1 mg PO DAILY@119903/13/16 10/24/20 History Ferrex-28 0.5 tab PO DAILY@119903/16/19 10/24/20 History Furosemide [Lasix] 20 mg PO DAILY@79903/16/19 10/24/20 History Memantine [Namenda] 10 mg PO BID@0800,199903/16/19 10/24/20 History Omeprazole [PriLOSEC] 20 mg PO DAILY@0800 03/16/19 10/24/20 History Sertraline [Zoloft] 50 mg PO HS@199903/16/19 10/24/20 History Artificial Tears-Hypromellose 1 drop BOTH EYES DAILY PRN 10/24/20 10/24/20 History [Artificial Tear Drops] Ascorbic Acid [Vitamin C] 500 mg PO DAILY@0800 10/24/20 10/24/20 History Cholecalciferol (Vitamin D3) 125 mcg PO DAILY@1200 10/24/20 10/24/20 History [Vitamin D3 (5000 units)] Dm/Acetaminophen/Doxylamine [Vicks 15 ml PO HS PRN 10/24/20 10/24/20 History Nyquil Cold-Flu Liquid] Donepezil 23mg 23 mg PO DAILY@0800 10/24/20 10/24/20 History Ipratropium [place] 0.06%Nasal 1 spray EA NOSTRIL Q4H PRN 10/24/20 10/24/20 History [Atrovent Nasal 0.06%] Levothyroxine Sodium 112 mcg PO DAILY@0700 10/24/20 10/24/20 History Potassium Chloride ER [K-Dur 10] 10 meq PO DAILY@0800 10/24/20 10/24/20 History Vit C/E/Zn/Coppr/Lutein/Zeaxan 1 cap PO BID@0800,2000 10/24/20 10/24/20 History [Preservision Areds 2 Softgel] Zinc 50 mg PO DAILY@0800 10/24/20 10/24/20 History carvediloL [Coreg] 3.125 mg PO BID@0800,1800 10/24/20 10/24/20 History guaiFENesin-Coden 100-10MG/5ML 5 ml PO Q4H PRN 10/24/20 10/24/20 History [Robitussin AC] Allergies Allergy/AdvReac Type Severity Reaction Status Date / Time ciprofloxacin HCl Allergy Intermediate Rash/Hives Verified 10/24/20 07:21 [From Cipro] Penicillins Allergy Rash/Hives Verified 10/24/20 07:21 Sulfa (Sulfonamide Allergy Rash/Hives Verified 10/24/20 07:21 Antibiotics) Physical Exam Osteopathic Statement: *. No significant issues noted on an osteopathic s tructural exam other than those noted in the History and Physical/Consult. Vitals: Vital Signs Temp Pulse Pulse Resp BP BP Pulse Ox 10/25/20 11:43 97.9 F 85 17 160/70 96 10/25/20 08:00 64 58 L 18 10/25/20 07:42 97.8 F 64 18 136/63 98 10/25/20 01:23 97.7 F 58 L 17 111/64 98 10/24/20 20:00 98.2 F 63 18 131/72 99 Intake and Output 10/25/20 10/25/20 10/25/20 06:59 14:59 22:59 Intake Total 120 Balance 120 Intake: Oral 120 Other: Voiding Method Toilet # Voids 1 No acute distress, not oriented to person, place, or time. HEENT examination is grossly unremarkable. No supplemental oxygen. Neck supple. Full range of motion. No adenopathy thyromegaly or neck vein distention. Cardiovascular examination reveals regular rhythm rate. S1-S2 normal. No S3 or S4. No discernible murmur noted. Heart rate is 64 bpm. Lungs reveal clear breath sounds. Her sounds are equal bilaterally. No adventitious lung sounds including wheezes rhonchi or crackles. Abdomen soft bowel sounds are heard. No masses or tenderness. Extremities are intact. No cyanosis clubbing or edema. Skin is without rash or lesion. Neurologic examination is very difficult to assess. She does move all 4 extremities. She is not oriented to person, place, or time. Results - Laboratory Findings CBC and BMP: 10/25/20 06:00 10/25/20 06:00 Abnormal lab findings: Abnormal Labs 10/23/20 10/23/20 10/25/20 23:03 23:11 06:00 RBC 3.60 L Hct 33.3 L Plt Count 118 L Sodium 134 L Potassium 3.2 L Chloride BUN 39 H Creatinine 1.18 H BUN/Creatinine Ratio Calcium Total Protein Albumin Urine Appearance Cloudy H Urine Protein 1+ H Ur Leukocyte Esterase Large H Urine WBC 128 H Urine Bacteria Rare H Hyaline Casts 6 H Urine Mucus Rare H Coronavirus (PCR) 10/25/20 10/25/20 06:00 08:00 RBC Hct Plt Count Sodium 146 H Potassium 3.3 L Chloride 115 H BUN Creatinine BUN/Creatinine Ratio 26.25 H Calcium 8.0 L Total Protein 4.5 L Albumin 2.80 L Urine Appearance Urine Protein Ur Leukocyte Esterase Urine WBC Urine Bacteria Hyaline Casts Urine Mucus Coronavirus (PCR) Detected A - Diagnostic Findings Chest x-ray: image reviewed Assessment and Plan Assessment: Urinary tract infection, with possible urosepsis. Previous history of COVID 19 infection, status post 10 days of Decadron, and COVID cocktail vitamins. Mild/moderate dehydration, with hypernatremia. History of skin cancer. History of hyperlipidemia. History of severe dementia. History of hypertension. History of hypothyroidism. Prior history of pulmonary embolism. History of gout. History of glaucoma. Prior history of urinary tract infections. Plan: Plan dated 10/25/2020. Currently, the patient is on Rocephin for a suspected urinary tract infection. The patient was diagnosed with COVID 19 on October 08, and completed 10 days of Decadron. Decadron will be discontinued. Additional recommendations and suggestions are forthcoming. The patient has severe dementia. She appears not to be suffering any pulmonary issues at this time. She will need some additional hydration. We will continue to follow. Time with Patient: Greater than 30
[2020-10-25] MEDS: MECLIZINE 12.5 MG TAB PO SCH (17:17)
[2020-10-25] MEDS ORDERED: metHOTREXate sodium 2.5 MG TAB PO SCH (20:00)
[2020-10-25] MEDS: SERTRALINE 50 MG TAB PO SCH (20:49)
[2020-10-25] MEDS: BRIMONIDINE TARTRATE 0.2% DROPS 5 ML BTL BOTH EYES SCH (20:50)
[2020-10-25] MEDS: LATANOPROST 0.005% OPHTH DROPS 2.5 ML BTL BOTH EYES SCH (20:50)
[2020-10-26 06:57] LABS: Basophils % (A) 0 %; Eosinophils # (A) 0.1 k/uL (0-0.7); Eosinophils % (A) 1 %; HGB 11.4 gm/dL (11.4-16.0); Lymphocytes % (A) 12 %; MCHC 34.4 g/dL (31.0-37.0); MCV 92.9 fL (80.0-100.0); Mean Platelet Volume 8.9; Monocytes # (A) 0.4 k/uL (0-1.0); Monocytes % (A) 4 %; Neutrophils # (A) 7.3 k/uL (1.3-7.7); Neutrophils % (A) 82 %; Platelet Count 137 k/uL (150-450); RBC 3.55 m/uL (3.80-5.40); RDW 14.5 % (11.5-15.5); WBC 8.9 k/uL (3.8-10.6)
[2020-10-26] MEDS: FUROSEMIDE 20 MG TAB PO SCH (08:04)
[2020-10-26] MEDS: LEVOTHYROXINE 112 MCG TAB PO SCH (08:04)
[2020-10-26] MEDS: DONEPEZIL 10 MG TAB PO SCH (08:04)
[2020-10-26] MEDS: POTASSIUM CHLORIDE ER 10 MEQ TAB.ER.PRT PO SCH (08:05)
[2020-10-26] MEDS: carvediloL 3.125 MG TAB PO SCH (08:05)
[2020-10-26] MEDS: ASCORBIC ACID 500 MG TAB PO SCH (08:05)
[2020-10-26] MEDS: ZINC SULFATE 220 MG CAP PO SCH (08:06)
[2020-10-26] MEDS: MEMANTINE 10 MG TAB PO SCH (08:06)
[2020-10-26] MEDS: VIT A,C & E-LUTEIN-MINERALS 1 EACH TAB PO SCH (08:07)
[2020-10-26] MEDS: PANTOPRAZOLE 40 MG TABLET PO SCH (08:07)
[2020-10-26] MEDS: ENOXAPARIN 40 MG/0.4 ML SYRINGE SQ SCH (08:17)
--- NOTE | 2020-10-26 09:10 | P.PN ---
Subjective Progress Note Date: 10/25/20 Linda Wilson, is an 89-year-old female who presented to [facility] emergency room with generalized weakness and abdominal pain patient was evaluated in the emergency room, her vital examination on presentation revealed a temperature of 97.4 pulse 69 respiration 18 pressure 109/59 pulse ox 98% on room air her white blood count was 9.1 hemoglobin 14.2 platelet count 184 sodium 134 potassium 3.2 BUN 39 creatinine 1.18 urine analysis revealed evidence of urinary tract infection patient was admitted to medical floor for further evaluation and treatment. Patient has known history of advanced dementia she also has a history of hypertension, gout, hypothyroidism, gastroesophageal reflux disease, depression, history of glaucoma remote history of DVT, in 2011 and history of diverticulosis with perforated . bowel requiring colostomy placement. Review of system is somewhat limited due to patient advanced dementia, however she is complaining of feeling weak and having some abdominal discomfort she denies any chest pain or shortness of breath On 10/25/2019 patient was seen and examined on the medical floor she is alert confused in no apparent distress she is not requiring any oxygen supplements at this time, there is no fever or chills she denies any chest pain or shortness of breath, she is still complaining of generalized weakness otherwise she denies any complaints. Case was discussed in details with patient's daughter over the phone today. Objective - Vital Signs Vital signs: Vital Signs Temp 97.8 F 10/25/20 07:42 Pulse 64 10/25/20 07:42 Resp 18 10/25/20 07:42 BP 136/63 10/25/20 07:42 Pulse Ox 98 10/25/20 07:42 Intake & Output 10/24/20 10/25/20 10/25/20 18:59 06:59 18:59 Intake Total 620 Balance 620 Intake: Oral 520 Other 100 Other: Voiding Method Toilet # Voids 1 1 - Exam In general patient is alert and oriented 3 in no apparent distress HEENT head normocephalic and atraumatic Neck is supple no JVD no goiter no lymphadenopathy Chest exam reveals a few scattered rhonchi bilaterally no wheezing Cardiac exam reveals regular heart sounds S1 and S2 no gallops no murmurs Abdomen is soft nontender no organomegaly with normal bowel sounds Extremity exam reveals no edema no cyanosis or clubbing Neurological exam reveals no acute gross focal deficit - Labs CBC & Chem 7: 10/26/20 06:12 10/25/20 15:40 Labs: Abnormal Lab Results - Last 24 Hours (Table) 10/25/20 Range/Units 06:00 RBC 3.60 L (3.80-5.40) m/uL Hct 33.3 L (34.0-46.0) % Plt Count 118 L (150-450) k/uL Microbiology - Last 24 Hours (Table) 10/23/20 23:11 Urine Culture - Preliminary Urine,Voided Assessment and Plan Plan: 1. Urinary tract infection, patient was started on IV Rocephin in the emergency room awaiting urine culture was 2. Dehydration with acute kidney injury, with elevated BUN and creatinine patient was started on gentle hydration with monitor kidney function closely 3. Hypokalemia correcting 4. Generalized weakness, Will consult physical therapy and occupational therapy 5. Abdominal pain, will check computed tomography scan of the abdomen and pelvis with oral contrast without IV contrast 6. Underlying history of gout. 7. Underlying history of hypertension 8. Underlying history of hypothyroidism 9. Previous history of bowel perforation with colostomy placement 10. Covid 19 pneumonia patient was diagnosed with Covid 19 on October 04, 2021 she received a course of steroid as outpatient and did well CXR and CT scan are showing bilateral infiltrates at this time will restart Decadron 11. For DVT prophylaxis Lovenox At this time will continue with IV Rocephin awaiting urine culture results home medications reviewed and reordered will correct potassium and hydrate patient gently Will check computed tomography scan of the abdomen and pelvis recheck labs in a.m. check chest x-ray will follow in a.m.
[2020-10-26 10:47] LABS: African American GFR (CKD) 75.8 (60.0-200.0); Albumin/Globulin Ratio 1.76 (1.60-3.17); Anion Gap 5.4 mmol/L (4.00-12.00); Calcium 8.5 mg/dL (8.7-10.3); Carbon Dioxide 24.6 mmol/L (21.6-31.8); Globulin 1.7 g/dL (1.6-3.3); Non-African American GFR(CKD) 65.4 (60.0-200.0); Potassium 3.8 mmol/L (3.5-5.5); Total Bilirubin 0.5 mg/dL (0.3-1.2); Total Protein 4.7 g/dL (6.2-8.2)
[2020-10-26 11:41] VITALS: BP 122/63; PULSE 72; RESP 15; TEMP 97.8
[2020-10-26] MEDS: CHOLECALCIFEROL 1,000 UNIT TAB PO SCH (11:51)
[2020-10-26] MEDS: allopurinoL 300 MG TAB PO SCH (11:52)
[2020-10-26] MEDS: FOLIC ACID 1 MG TAB PO SCH (11:52)
--- NOTE | 2020-10-26 13:10 | P.DS ---
Providers Date of admission: 10/24/20 00:11 Expected date of discharge: 10/26/20 Attending physician: Josselyn Cheney Consults: 10/25/20 08:31 Consult Physician Routine Consulting Provider: Chapincito Burgess Consult Reason/Comments: bibasilar infiltrates Do you want consulting provider notified?: Yes 10/26/20 12:51 Consult Physician Routine Consulting Provider: Ced Chris Consult Reason/Comments: gait disturbance Do you want consulting provider notified?: Yes Primary care physician: [facility] Course: Diagnosis on discharge: 1. Urinary tract infection, patient was started on IV Rocephin in the emergency room awaiting urine culture. Urine culture results came back for 50-100,000 mixed skin thelma, patient improved significantly on IV Rocephin, she was given 5 more days of oral Ceftin and was discharged home on 10/26/2020 2. Dehydration with acute kidney injury, with elevated BUN and creatinine patient was started on gentle hydration with monitor kidney function closely 3. Hypokalemia correcting 4. Generalized weakness, Will consult physical therapy and occupational therapy 5. Abdominal pain, will check computed tomography scan of the abdomen and pelvis with oral contrast without IV contrast 6. Underlying history of gout. 7. Underlying history of hypertension 8. Underlying history of hypothyroidism 9. Previous history of bowel perforation with colostomy placement 10. Covid 19 pneumonia patient was diagnosed with Covid 19 on October 04, 2021 she received a course of steroid as outpatient and did well CXR and CT scan are showing bilateral infiltrates at this time will restart Decadron 11. For DVT prophylaxis [facility] course: Linda Wilson, is an 89-year-old female who presented to [facility] emergency room with generalized weakness and abdominal pain patient was evaluated in the emergency room, her vital examination on presentation revealed a temperature of 97.4 pulse 69 respiration 18 pressure 109/59 pulse ox 98% on room air her white blood count was 9.1 hemoglobin 14.2 platelet count 184 sodium 134 potassium 3.2 BUN 39 creatinine 1.18 urine analysis revealed evidence of urinary tract infection patient was admitted to medical floor for further evaluation and treatment. Patient has known history of advanced dementia she also has a history of hypertension, gout, hypothyroidism, gastroesophageal reflux disease, depression, history of glaucoma remote history of DVT, in 2011 and history of diverticulosis with perforated . bowel requiring colostomy placement. Review of system is somewhat limited due to patient advanced dementia, however she is complaining of feeling weak and having some abdominal discomfort she denies any chest pain or shortness of breath On 10/25/2019 patient was seen and examined on the medical floor she is alert confused in no apparent distress she is not requiring any oxygen supplements at this time, there is no fever or chills she denies any chest pain or shortness of breath, she is still complaining of generalized weakness otherwise she denies any complaints. Case was discussed in details with patient's daughter over the phone today. On 10/26/2020 patient was seen and examined on the medical floor she is alert, confused, in no distress at this time she is sitting up in a chair she is denying any symptoms she was able to ambulate. At this time will discontinue IV Rocephin and switched to oral Ceftin for 5 more days will discharge back to [facility] facility Patient Condition at Discharge: Fair Plan - Discharge Summary Discharge Rx Participant: Yes New Discharge Prescriptions: New Cefuroxime [Ceftin] 250 mg PO BID 5 Days #10 tab Continue Latanoprost Ophth [Xalatan 0.005%] 1 drop BOTH EYES HS@2000 Meclizine [Antivert] 12.5 mg PO DAILY@1800 metHOTREXate sodium [Methotrexate] 17.5 mg PO WE@1999 allopurinoL [Zyloprim] 150 mg PO DAILY@1200 Folic Acid 1 mg PO DAILY@1200 Acetaminophen [Tylenol Arthritis 8-hr] 650 - 1,300 mg PO HS@1999 Brimonidine Tartrate [Alphagan P 0.1% Ophth Soln] 1 drop BOTH EYES HS@1999 Sertraline [Zoloft] 50 mg PO HS@1999 Ferrex-28 0.5 tab PO DAILY@1200 Memantine [Namenda] 10 mg PO BID@0800,2000 Omeprazole [PriLOSEC] 20 mg PO DAILY@0800 Furosemide [Lasix] 20 mg PO DAILY@0800 Ipratropium [employer] 0.06%Nasal [Atrovent Nasal 0.06%] 1 spray EA NOSTRIL Q4H PRN PRN Reason: Allergy Symptoms carvediloL [Coreg] 3.125 mg PO BID@0800,1800 Vit C/E/Zn/Coppr/Lutein/Zeaxan [Preservision Areds 2 Softgel] 1 cap PO BID@0800,1999 Donepezil 23mg 23 mg PO DAILY@0800 Potassium Chloride ER [K-Dur 10] 10 meq PO DAILY@0800 Levothyroxine Sodium 112 mcg PO DAILY@0700 Zinc 50 mg PO DAILY@0800 Ascorbic Acid [Vitamin C] 500 mg PO DAILY@0800 guaiFENesin-Coden 100-10MG/5ML [Robitussin AC] 5 ml PO Q4H PRN PRN Reason: Cough Artificial Tears-Hypromellose [Artificial Tear Drops] 1 drop BOTH EYES DAILY PRN PRN Reason: Dry Eye(S) Cholecalciferol (Vitamin D3) [Vitamin D3 (5000 units)] 125 mcg PO DAILY@1200 Dm/Acetaminophen/Doxylamine [Vicks Nyquil Cold-Flu Liquid] 15 ml PO HS PRN PRN Reason: Cold Symptoms Discharge Medication List Latanoprost Ophth [Xalatan 0.005%] 1 drop BOTH EYES HS@199908/24/14 [History] Meclizine [Antivert] 12.5 mg PO DAILY@1800 08/24/14 [History] allopurinoL [Zyloprim] 150 mg PO DAILY@119901/24/16 [History] metHOTREXate sodium [Methotrexate] 17.5 mg PO WE@199901/24/16 [History] Acetaminophen [Tylenol Arthritis 8-hr] 650 - 1,300 mg PO HS@199903/13/16 [History] Brimonidine Tartrate [Alphagan P 0.1% Ophth Soln] 1 drop BOTH EYES HS@199903/13/16 [History] Folic Acid 1 mg PO DAILY@119903/13/16 [History] Ferrex-28 0.5 tab PO DAILY@119903/16/19 [History] Furosemide [Lasix] 20 mg PO DAILY@0803/16/19 [History] Memantine [Namenda] 10 mg PO BID@0800,199903/16/19 [History] Omeprazole [PriLOSEC] 20 mg PO DAILY@0800 03/16/19 [History] Sertraline [Zoloft] 50 mg PO HS@199903/16/19 [History] Artificial Tears-Hypromellose [Artificial Tear Drops] 1 drop BOTH EYES DAILY PRN 10/24/20 [History] Ascorbic Acid [Vitamin C] 500 mg PO DAILY@0800 10/24/20 [History] Cholecalciferol (Vitamin D3) [Vitamin D3 (5000 units)] 125 mcg PO DAILY@1200 10/24/20 [History] Dm/Acetaminophen/Doxylamine [Vicks Nyquil Cold-Flu Liquid] 15 ml PO HS PRN 10/24/20 [History] Donepezil 23mg 23 mg PO DAILY@0800 10/24/20 [History] Ipratropium [employer] 0.06%Nasal [Atrovent Nasal 0.06%] 1 spray EA NOSTRIL Q4H PRN 10/24/20 [History] Levothyroxine Sodium 112 mcg PO DAILY@0700 10/24/20 [History] Potassium Chloride ER [K-Dur 10] 10 meq PO DAILY@0800 10/24/20 [History] Vit C/E/Zn/Coppr/Lutein/Zeaxan [Preservision Areds 2 Softgel] 1 cap PO BID@0800,2000 10/24/20 [History] Zinc 50 mg PO DAILY@0800 10/24/20 [History] carvediloL [Coreg] 3.125 mg PO BID@0800,1800 10/24/20 [History] guaiFENesin-Coden 100-10MG/5ML [Robitussin AC] 5 ml PO Q4H PRN 10/24/20 [History] Cefuroxime [Ceftin] 250 mg PO BID 5 Days #10 tab 10/26/20 [Rx] Follow up Appointment(s)/Referral(s): Josselyn Cheney MD [Primary Care Provider] - 1-2 days
== END 2020-10-26 16:11 | disposition home or self-care (01) | DRG 689 ==
LOC: EC 22:37 → 5NMEDONC 10-24 00:11 → 6NMEDSUR 10-25 09:46
PROVIDERS: ADMIT Internal Medicine; ATTEND Internal Medicine
DX: N39.0 Urinary tract infection, site not specified (principal); U07.1 COVID-19; J12.82 Pneumonia due to coronavirus disease 2019; E87.0 Hyperosmolality and hypernatremia; N17.9 Acute kidney failure, unspecified; I10 Essential (primary) hypertension; F41.9 Anxiety disorder, unspecified; F32.9 Major depressive disorder, single episode, unspecified; Z96.652 Presence of left artificial knee joint; E78.5 Hyperlipidemia, unspecified; E03.9 Hypothyroidism, unspecified; E11.9 Type 2 diabetes mellitus without complications; E86.0 Dehydration; E87.6 Hypokalemia; M10.9 Gout, unspecified; F03.90 Unspecified dementia, unspecified severity, without behavioral disturbance, psychotic disturbance, mood disturbance, and anxiety; Z86.16 Personal history of COVID-19; Z79.890 Hormone replacement therapy; Z79.899 Other long term (current) drug therapy; Z88.1 Allergy status to other antibiotic agents; Z88.0 Allergy status to penicillin; Z88.2 Allergy status to sulfonamides; Z86.711 Personal history of pulmonary embolism; Z93.3 Colostomy status; Z90.710 Acquired absence of both cervix and uterus; Z87.440 Personal history of urinary (tract) infections; Z86.718 Personal history of other venous thrombosis and embolism; Z85.828 Personal history of other malignant neoplasm of skin; Z82.49 Family history of ischemic heart disease and other diseases of the circulatory system; Z80.8 Family history of malignant neoplasm of other organs or systems; Z90.49 Acquired absence of other specified parts of digestive tract; Z98.49 Cataract extraction status, unspecified eye; Z98.890 Other specified postprocedural states; Z87.01 Personal history of pneumonia (recurrent)
CPT/HCPCS: 36415; 71045; 74176; 80053; 81001; 82550; 83605; 83735; 84100; 84132; 84484; 85025; 87086; 87635; 93005; 96361; 96365; 99285